=== PATIENT | male | born 1965 | race African-American/Black ===

== ENCOUNTER 2016-12-26 13:38 | Emergency (ER) | payer OTHER ==
[2016-12-26 14:15] VITALS: RESP 18
--- NOTE | 2016-12-26 14:42 | ED ---
General Adult HPI - General Chief complaint: Extremity Injury, Lower Stated complaint: ankle injury Time Seen by Provider: 12/26/16 14:19 Source: patient, RN notes reviewed Mode of arrival: ambulatory Limitations: no limitations - History of Present Illness Initial comments: This is a 51-year-old male presents with right ankle pain. Patient states he was walking and rolled his right ankle on Friday. Patient reports that the swelling is increasing and the pain has increased since Friday. Patient denies any numbness/tingling or weakness to the right lower extremity. Patient has been ambulating. Patient is not on any anticoagulants. Patient states he has a history of asthma and is requesting a refill of his albuterol inhaler today. Patient denies any recent fever, chills, shortness breath, chest pain, abdominal pain, nausea/vomiting/diarrhea, back pain, numbness, tingling, hematuria, headache, or visual changes, or any other complaints. - Related Data Previous Rx's Medication Instructions Recorded Albuterol Inhaler [Ventolin Hfa 1 - 2 puff INHALATION Q6HR #1 12/26/16 Inhaler] inhaler HYDROcodone/APAP 5-325MG [[place] 1 tab PO Q6HR #12 tab 12/26/16 5-325] Allergies Allergy/AdvReac Type Severity Reaction Status Date / Time No Known Allergies Allergy Verified 12/26/16 14:18 Review of Systems ROS Statement: Those systems with pertinent positive or pertinent negative responses have been documented in the HPI. ROS Other: All systems not noted in ROS Statement are negative. Past Medical History Past Medical History: Asthma History of Any Multi-Drug Resistant Organisms: None Reported Additional Past Surgical History / Comment(s): neck surgery. Past Psychological History: No Psychological Hx Reported Smoking Status: Never smoker Past Alcohol Use History: Occasional Past Drug Use History: Cocaine, Marijuana General Exam - General Exam Comments Initial Comments: General: The patient is awake and alert, in no distress, and does not appear acutely ill. Neck: The neck is supple, there is no tenderness or JVD. Cardiovascular: There is a regular rate and rhythm. No murmur, rub or gallop is appreciated. Respiratory: Lungs are clear to auscultation, respirations are non-labored, breath sounds are equal. No wheezes, stridor, rales, or rhonchi. Musculoskeletal: There is tenderness to palpation over the medial and lateral malleoli of the right ankle. There is 1+ nonpitting edema to the right lower extremity extending from the mid calf into the right foot. Patient has tenderness to the distal right tib-fib. Patient has no tenderness to palpation of the right foot. Limited range of motion of the right ankle joint due to pain and swelling. Patient is able to flex and extend at the right ankle joint slightly. Strength 5/5 and Sensation intact. Dorsalis pedis pulses 2+ bilaterally. Capillary refill is normal at less than 2 seconds. Neurological: A&O x 3. CN II-XII intact, There are no obvious motor or sensory deficits. Coordination appears grossly intact. Speech is normal. Skin: Skin is warm and dry and no rashes or lesions are noted. Psychiatric: Normal mood and affect. Limitations: no limitations Course Vital Signs 12/26/16 14:00 Temperature 98.5 F Pulse Rate 93 Respiratory 18 Rate Blood Pressure 140/80 O2 Sat by Pulse 99 Oximetry Medical Decision Making - Medical Decision Making This is a 50-year-old male with right ankle pain since Friday. On physical exam There is tenderness to palpation over the medial and lateral malleoli of the right ankle. There is 1+ nonpitting edema to the right lower extremity extending from the mid calf into the right foot. Patient has tenderness to the distal right tib-fib. Patient has no tenderness to palpation of the right foot. Limited range of motion of the right ankle joint due to pain and swelling. Patient is able to flex and extend at the right ankle joint slightly. Strength 5/5 and Sensation intact. Dorsalis pedis pulses 2+ bilaterally. Capillary refill is normal at less than 2 seconds. Patient is requesting a refill of his albuterol inhaler for asthma. She is currently not having any shortness of breath and lungs are clear to auscultation bilaterally. Patient will be given a prescription for albuterol inhaler today. An x-ray of the right ankle is done and reviewed showing: #1 week fracture with displacement distal fibula. #2 distortion of the ankle mortise with widening of the medial compartment correlate clinically. Reported by Dr. Grace. I did attempt to provide some reduction and patient was splinted. Patient is neurovascularly intact. A short leg posterior OCL splint to the right lower extremity was placed. Neurovascular was rechecked and is intact. Patient was instructed to stay non- weightbearing to the right lower extremity. Patient was instructed to rest, ice , elevate and keep splint on until follow-up with orthopedics. Patient will be given crutches. Discussed with patient to follow-up with orthopedics in the next 1-2 days. Discussed the patient should follow-up with his PCP or to please return to the [facility] symptoms worsen or for any other concerns. I discussed this case with attending physician Dr. Dillon who agrees with the plan as stated above. Disposition Clinical Impression: Closed fibular fracture Disposition: HOME SELF-CARE Condition: Good Instructions: Ankle Fracture (ED) Additional Instructions: Please rest, ice, elevate, and use splint for support. Please stay nonweightbearing to the right lower extremity and use crutches. Please use over -the-counter Motrin and/or Tylenol for pain. Please use [place] as needed for breakthrough pain. Please follow up with orthopedics tomorrow or as soon as possible. Please return to the [facility] for any worsening symptoms or for any further concerns. Prescriptions: Albuterol Inhaler [Ventolin Hfa Inhaler] 1 - 2 puff INHALATION Q6HR #1 inhaler HYDROcodone/APAP 5-325MG [[place] 5-325] 1 tab PO Q6HR #12 tab Referrals: Lucie Yap MD [Primary Care Provider] - 1-2 days Time of Disposition: 15:24
--- NOTE | 2016-12-26 15:10 | XR ---
EXAMINATION TYPE: XR ankle complete RT DATE OF EXAM: 12/26/2016 2:58 PM COMPARISON: NONE HISTORY: Pain Three views of the ankle demonstrate oblique fracture through the distal fibula. There is distortion and asymmetry the ankle mortise. Widening of the medial compartment of the ankle mortise correlate f or subluxation of the tibia. IMPRESSION: 1. Oblique fracture with displacement distal fibula. 2. Distortion of the ankle mortise with widening of the medial compartment correlate clinically.
--- NOTE | 2016-12-26 15:46 | ED ---
Disposition Clinical Impression: Closed fibular fracture Disposition: HOME SELF-CARE Condition: Good Instructions: Ankle Fracture (ED) Additional Instructions: Please rest, ice, elevate, and use splint for support. Please stay nonweightbearing to the right lower extremity and use crutches. Please use over -the-counter Motrin and/or Tylenol for pain. Please use [place] as needed for breakthrough pain. Please follow up with orthopedics tomorrow or as soon as possible. Please return to the [facility] for any worsening symptoms or for any further concerns. Prescriptions: Albuterol Inhaler [Ventolin Hfa Inhaler] 1 - 2 puff INHALATION Q6HR #1 inhaler HYDROcodone/APAP 5-325MG [[place] 5-325] 1 tab PO Q6HR #12 tab Referrals: Lucie Yap MD [Primary Care Provider] - 1-2 days Faraz La MD [Medical Doctor] - 1-2 days Time of Disposition: 15:46
[2016-12-26 15:52] VITALS: BP 136/76; PULSE 90; TEMP 98.2
== END 2016-12-26 15:51 | disposition home or self-care (01) ==
LOC: EC 13:38
DX: S82.831A Other fracture of upper and lower end of right fibula, initial encounter for closed fracture (principal); M25.871 Other specified joint disorders, right ankle and foot; X50.1XXA Overexertion from prolonged static or awkward postures, initial encounter; Y93.01 Activity, walking, marching and hiking; Z76.0 Encounter for issue of repeat prescription; J45.909 Unspecified asthma, uncomplicated
CPT/HCPCS: 29515; 99283

== ENCOUNTER 2017-01-08 11:20 | Day surgery (SDC) | payer OTHER ==
[2017-01-02 08:43] VITALS: BMI 28.1
[~2017-01-08 11:20] MED LIST: DEXAMETHASONE SOD PHOSPHATE 10 MG/ML 1 ML VIAL IV ONE; LACTATED RINGERS 1,000 ML IV SCH; LIDOCAINE 1% 20 ML VIAL (10MG/ML) FOR IV START INTRADERMA PRN; MIDAZOLAM 2 MG/2 ML VIAL IV PRN; ONDANSETRON 4 MG/2 ML VIAL IVP ONE; SCOPOLAMINE 1.5MG/72HR PATCH TRANSDERM ONE; ceFAZolin 2 GM in SODIUM CHLORIDE 0.9% 100 ML IVPB ONE; fentaNYL (PF) 50 MCG/ML 20 ML VIAL IVP PRN
[2017-01-08] MEDS ORDERED: HYDROmorphone 1 MG/ML 1 ML SYRINGE IVP PRN (12:33)
[2017-01-08] MEDS ORDERED: ONDANSETRON 4 MG/2 ML VIAL IVP PRN (12:33)
[2017-01-08] MEDS ORDERED: HYDROcodone/APAP 5-325MG 1 EACH TAB PO PRN (12:33)
[2017-01-08] MEDS ORDERED: fentaNYL (PF) 50 MCG/ML 2 ML AMP ONE (12:43)
[2017-01-08] MEDS ORDERED: LIDOCAINE 1% INJ 10MG/ML (20 ML MDV) ONE (12:43)
[2017-01-08] MEDS ORDERED: PROPOFOL 10 MG/ML 20 ML VIAL IV ONE (12:43)
[2017-01-08] MEDS ORDERED: HYDROmorphone (PF) 1 MG/ML ONE (12:43)
[2017-01-08] MEDS ORDERED: MIDAZOLAM 2 MG/2 ML VIAL ONE (12:43)
[2017-01-08] MEDS ORDERED: PHENYLEPHRINE-0.9% NACL SYG 1 MG/10 ML SYRINGE ONE (12:43)
[2017-01-08] MEDS ORDERED: SUCCINYLCHOLINE CHLORIDE 100 MG/5 ML SYR IV ONE (12:43)
[2017-01-08] MEDS ORDERED: ePHEDrine 50 MG/ML 1 ML AMP ONE (12:43)
[2017-01-08] MEDS ORDERED: ceFAZolin 1,000 MG in SODIUM CHLORIDE 0.9% 1,000 ML IRRIGATION ONE (13:17)
--- NOTE | 2017-01-08 14:05 | FL ---
Fluoroscopy INDICATION: Pain FINDINGS: Fluoroscopy time: 1 minute 15 seconds. Images obtained: 3. IMPRESSIONS: 1. Documentation of fluoroscopy.
--- NOTE | 2017-01-08 14:06 | XR ---
EXAMINATION TYPE: XR ankle limited RT DATE OF EXAM: 01/08/2017 2:01 PM COMPARISON: NONE HISTORY: Open reduction internal fixation right ankle TECHNIQUE: Fluoroscopy for procedure FINDINGS: 1 minute 15 seconds of fluoroscopy time was provided for procedure. 3 paper images are scan pamela. IMPRESSION: 1. Fluoroscopy for procedure
[2017-01-08] MEDS: HYDROmorphone 1 MG/ML 1 ML SYRINGE IVP PRN ×6 (14:20→15:31)
--- NOTE | 2017-01-08 14:42 | P.OP ---
Date of Procedure: 01/08/17 Preoperative Diagnosis: 1. Closed right bimalleolar equivalent ankle fracture 2. Current marijuana smoker Postoperative Diagnosis: Same Procedure(s) Performed: 1. Open reduction internal fixation of right lateral malleolus fracture 2. Right ankle syndesmotic screw 3. Manual application of joint stress for radiography by physician Anesthesia: EPI Surgeon: Faraz La Estimated Blood Loss (ml): 10 IV fluids (ml): 850 Pathology: none sent Condition: stable Disposition: PACU Indications for Procedure: The patient is a 51-year-old male who sustained a closed right ankle fracture almost 2 weeks ago. He was seen in emergency department were closed reduction and x-rays were taken. He was referred to my office. In my office he was found to have an unstable ankle fracture and I recommended surgery. We discussed the potential risks and Location of surgery including but not limited to risk of anesthesia, risk of superficial infection, risk of deep infection, risk of delayed wound healing, risk of wound necrosis, risk of need for plastic surgery coverage, risk of fracture nonunion, risk of fracture malunion, risk of synthetic hardware, risk of broken hardware, risk of displacement following surgery and the postoperative period, risk of chronic pain, risk of chronic swelling, risk of generalized to satisfaction with surgery, risk of inability to regain preinjury level of function, risk of difficulty ambulating, risk of need for further surgery, risk of need for syndesmotic screw removal, and possibly loss of life or limb. The patient understands these potential risks and Occasions and provided verbal and written consent to go forward with surgery. Description of Procedure: The patient was identified in preoperative holding and the correct right leg was marked with my initials. I reviewed the consent form with the patient and all his questions were answered. The patient was then brought back to the operating room. General anesthetic was administered after he was transferred onto the operating room table. All of his bony prominences were well-padded. I performed x-rays of the contralateral left x-rays including a mortise and a true lateral x-ray to use for R syndesmotic reduction should it be needed. The patient's right leg was then prepped and draped in standard sterile fashion. Prior to starting her timeout was performed identifying the correct patient, operative extremity, and procedure. Preoperative antibiotics were administered. The patient's right leg was then prepped and draped in the standard sterile fashion. The leg was then elevated, exsanguinated with an Esmarch bandage, and the tourniquet was inflated to 250 mmHg. An incision was marked out directly lateral over the distal fibula with a marking pen and skin incision was made a 15 blade scalpel. I dissected carefully down to the subcutaneous tissue with tenotomy scissors to avoid damaging any crossing branches of the superficial peroneal nerve. The fascia overlying the distal fibula was incised longitudinally in line with the skin incision. The fracture was immediately visible and exposed. Consolidating hematoma and early callus was sharply removed. I was able to gently open the fracture site and look into the lateral aspect of the ankle joint. There were no obvious osteochondral defects or loose intra-articular fragments. I then performed a closed reduction and clamped the fibula fracture with a point-to- point reduction clamp. C-arm fluoroscopy was brought in to verify reduction. On the mortise view the fibula appeared to be out to length but there was still widening of the medial clear space. I then proceeded to place an anterior to posterior lag screw across the fracture. A 2.7 drill bit was used to create a gliding hole on the anterior cortex of the proximal fragment and a 2.0 mm drill bit was used to create a threaded hole in the posterior cortex of the distal fragment. A fully threaded 2.7 mm screw was placed generating excellent compression across the fracture. The clamps were then removed and the fracture reduction held. I then held an 8 hole one third tubular plate over the distal fibula. A 3.5 screw was placed just proximal to the fracture bringing the plate nicely down to bone. 2 screws were then placed in the most distal holes of the plate in the distal fragment. I then proceeded to place 2 screws in the most proximal holes of the plate. I then performed a manual external rotation stress test. There was widening of the medial clear space and widening of the incisor. I interpreted this as instability of the syndesmosis requiring a screw. A stab incision was made over the medial aspect of the distal tibia centered on the lateral plane. A large pelvic reduction clamp was placed across the syndesmosis and gently tightened. C-arm was brought in to verify reduction of the syndesmosis and medial clear space. A fully threaded 3.5 mm syndesmotic screw was then placed. At this point all retractors were removed and final x-rays were taken. Hardware appeared to be in acceptable position, the fibula appeared out to length, and the talus was concentrically reduced within the ankle mortise with no widening of the medial clear space. A true lateral x-ray showed the talus centered under the plafond. Both wounds were copiously irrigated. The fascia over the distal fibula was closed with a running 0 Vicryl stitch. The deep subcu was reapproximated using 2-0 Vicryl. The skin was closed with interrupted 3-0 nylon horizontal mattress stitches. A single horizontal mattress stitch using 3-0 nylon was placed medially. After both incisions were closer verified that all instrument, sponge, and sharp counts were correct. The tourniquet was let down. A sterile dressing consisting of Betadine soaked Adaptic, 4 x 4, and web rolls applied. The drapes were then taken down and a padded bulky Su type splint was applied. The patient was then awoken from his anesthetic and transferred [facility]. He is brought to PACU in stable condition having tolerated the procedure well. Plan: The patient will discharge home as an outpatient. He is to remain strictly nonweightbearing on his right ankle. We'll plan on seeing him in the office in 2 weeks for clinical recheck with wound inspection and x-rays of the right ankle.
[2017-01-08 15:09] VITALS: TEMP 96.8
[2017-01-08] MEDS: LABETALOL 5 MG/ML VIAL MDV IVP ONE ×3 (15:20→16:00)
[2017-01-08] MEDS ORDERED: hydrALAZINE HCL 20 MG/ML 1 ML VIAL IVP ONE (15:45)
[2017-01-08] MEDS ORDERED: LABETALOL SYRINGE 5 MG/ML IVP ONE (16:10)
[2017-01-08 16:12] VITALS: RESP 18
[2017-01-08] MEDS ORDERED: oxyCODONE-APAP 5-325MG 1 EACH TAB PO ONE (16:19)
[2017-01-08 17:34] VITALS: BP 158/87; PULSE 80
== END 2017-01-08 17:34 | disposition home or self-care (01) ==
LOC: OR 11:20
PROVIDERS: ATTEND Orthopaedic Surgery
DX: S82.841A Displaced bimalleolar fracture of right lower leg, initial encounter for closed fracture (principal); X58.XXXA Exposure to other specified factors, initial encounter; J45.909 Unspecified asthma, uncomplicated; Z79.891 Long term (current) use of opiate analgesic; Z79.899 Other long term (current) drug therapy
CPT/HCPCS: 93005; 73600; 27814; C1713; J2250; J0360; J1100; J0690 ×2; J2405; J2001; J3010; J1170; J2370; J0330; J2704

== ENCOUNTER 2017-05-09 12:38 | Day surgery (SDC) | payer OTHER ==
[2017-05-07 12:33] VITALS: BMI 28.1
[~2017-05-09 12:38] MED LIST changes: -DEXAMETHASONE SOD PHOSPHATE 10 MG/ML 1 ML VIAL IV ONE; +HYDROmorphone 1 MG/ML 1 ML SYRINGE IVP PRN; -MIDAZOLAM 2 MG/2 ML VIAL IV PRN; -SCOPOLAMINE 1.5MG/72HR PATCH TRANSDERM ONE; -fentaNYL (PF) 50 MCG/ML 20 ML VIAL IVP PRN
[2017-05-09 13:34] VITALS: RESP 16
[2017-05-09] MEDS ORDERED: PROPOFOL 10 MG/ML 20 ML VIAL IV ONE (16:21)
[2017-05-09] MEDS ORDERED: MIDAZOLAM 2 MG/2 ML VIAL ONE (16:21)
[2017-05-09] MEDS ORDERED: LIDOCAINE 1% INJ 10MG/ML (20 ML MDV) ONE (16:21)
[2017-05-09] MEDS ORDERED: fentaNYL (PF) 50 MCG/ML 2 ML AMP ONE (16:21)
[2017-05-09] MEDS ORDERED: SUCCINYLCHOLINE CHLORIDE 100 MG/5 ML SYR IV ONE (16:21)
[2017-05-09] MEDS ORDERED: BUPIVACAINE (PF) 0.5% 30 ML VIAL SQ ONE (16:46)
[2017-05-09] MEDS ORDERED: LACTATED RINGERS 1,000 ML IV ONE (16:51)
--- NOTE | 2017-05-09 17:16 | P.OP ---
Date of Procedure: 05/09/17 Preoperative Diagnosis: Ankle fracture with retained syndesmotic screw Postoperative Diagnosis: Same Procedure(s) Performed: Hardware removal right ankle (right syndesmotic screw removal) Implants: Anesthesia: ZAA Surgeon: Faraz La Estimated Blood Loss (ml): 10 IV fluids (ml): 700 Pathology: none sent Condition: stable Disposition: PACU Indications for Procedure: The patient is a 52-year-old male but previously underwent open reduction internal fixation of a right ankle fracture. He had a syndesmotic screw placed. The patient went on to heal his fracture and has been doing well. I met with the patient several weeks ago and his main complaint was stiffness. I discussed removal of the syndesmotic screw. The patient after hearing the risks and benefits of removing the syndesmotic screw including risk of leaving the screw in place, risk of a broken screw, and risk of surgery with screw removal decided he wanted his syndesmotic screw removed. I discussed the potential risks and complications with the patient in the office including but not limited to risk of anesthesia, risk of superficial infection, risk of deep infection, risk of delayed wound healing, risk of wound necrosis, risk of broken hardware, risk of inability to remove the screw, risk of postoperative displacement, risk of postoperative instability, risk of progression of arthritis, risk of need for further surgery, risk of chronic pain, risk of chronic swelling, risk of difficulty ambulating preinjury level of function, and possibly loss of life or limb. The patient voiced his understanding of this and provided his verbal and written consent to go forward with surgery. Operative Findings: Description of Procedure: The patient was identified in preoperative holding and the correct leg was marked with my initials. I reviewed the consent form with the patient and his daughter and all their questions were answered. The patient was then brought back to the operating room. He was positioned on the operating room table. A general anesthetic was administered. A tourniquet was applied to the proximal aspect of the thigh but not inflated. C-arm was brought in to verify that the syndesmotic screw was not broken. The patient's right leg was then prepped and draped in the standard sterile fashion. Prior to starting surgery timeout was performed identifying the correct patient, operative extremity, and procedure. C-arm fluoroscopy was then brought in and I marked out the level of the syndesmotic screw. A 1 cm incision was made directly over the syndesmotic screw and dissection was carried down carefully to the level of the plate and screws. A small frag screwdriver was placed in the screw and carefully withdrawn after verifying with C-arm that the correct syndesmotic screw had been grasped with a screwdriver. After the screw was removed a mortise x-ray and manual external rotation stress x-ray were performed to verify that the screw had been removed and that the ankle remained stable. The wound was then copiously irrigated. The wound was closed with 3-0 nylon horizontal mattress stitches. 10 mL's of half percent Marcaine was injected around the incision. A sterile dressing consisting of Adaptic, 4 x 4, and web roll was applied. The patient was then placed in an Alberto wrap. The drapes were taken down and he was transferred from the operating room table to the [facility] and brought to PACU having to the procedure well. Plan: The patient can discharge home as an outpatient. He can weight-bear as tolerated in a cam boot. He is given a prescription for [place] 10/325 for pain control. He is also given prescriptions for Colace as a stool softener and aspirin 325 mg twice a day to help lower the risk of a blood clot. The patient will follow-up in the office in 2 weeks for stitch removal. He is to leave his dressing on for 2 days and then can remove his dressing and get his incision wet in the shower.
--- NOTE | 2017-05-09 17:16 | FL ---
Fluoroscopy INDICATION: Pain FINDINGS: Fluoroscopy time: 7 seconds. Images obtained: 1. IMPRESSIONS: 1. Documentation of fluoroscopy.
[2017-05-09 17:17] VITALS: TEMP 97.2
[2017-05-09 18:04] VITALS: BP 168/86; PULSE 73
== END 2017-05-09 18:25 | disposition home or self-care (01) ==
LOC: OR 12:38
PROVIDERS: ATTEND Orthopaedic Surgery
DX: T85.848A Pain due to other internal prosthetic devices, implants and grafts, initial encounter (principal); J45.909 Unspecified asthma, uncomplicated; Z79.899 Other long term (current) drug therapy
CPT/HCPCS: 20680; J2250; J0690; J2405; J2001; J3010; J0330; J2704

== ENCOUNTER 2018-06-15 13:52 | Emergency (ER) | payer OTHER ==
[2018-06-15 14:24] VITALS: RESP 18
[2018-06-15] MEDS ORDERED: PROPARACAINE 0.5% OPHTH DROPS 15 ML BTL LEFT EYE STA (14:42)
--- NOTE | 2018-06-15 14:44 | ED ---
Eye Problem HPI - General Chief complaint: Eye Problems Stated complaint: Eye Problem Time Seen by Provider: 06/15/18 14:37 Source: patient, RN notes reviewed Mode of arrival: ambulatory Limitations: no limitations - History of Present Illness Initial comments: This is a 53-year-old male who presents to the emergency department with chief complaint left eye problem. Patient states that today is the eighth day that he has had left eye irritation and redness. Denies any significant pain. He does state that the vision is blurry. States that he sometimes experiences foreign body sensation. Denies any suspicion for actual foreign body. Denies contact lens use. Denies fevers or chills, chest pain shortness of breath, abdominal pain, nausea or vomiting. - Related Data Home Medications Medication Instructions Recorded Confirmed Albuterol Inhaler [Ventolin Hfa 1 - 2 puff INHALATION Q6HR PRN 01/02/17 05/09/17 Inhaler] HYDROcodone/APAP 5-325MG [[place] 1 tab PO Q6HR PRN 01/02/17 05/09/17 5-325] Previous Rx's Medication Instructions Recorded Aspirin 325 mg PO BID #60 tab 05/09/17 Docusate [Colace] 100 mg PO BID #60 capsule 05/09/17 HYDROcodone/APAP 10-325MG [[place] 1 tab PO Q4HR PRN #30 tab 05/09/17 10-325] Allergies Allergy/AdvReac Type Severity Reaction Status Date / Time No Known Allergies Allergy Verified 06/15/18 14:24 Review of Systems ROS Statement: Those systems with pertinent positive or pertinent negative responses have been documented in the HPI. ROS Other: All systems not noted in ROS Statement are negative. Past Medical History Past Medical History: Asthma, Hypertension Additional Past Medical History / Comment(s): occ. Hypertension/ no meds History of Any Multi-Drug Resistant Organisms: None Reported Past Surgical History: Orthopedic Surgery Additional Past Surgical History / Comment(s): neck fusion; R ankle Past Anesthesia/Blood Transfusion Reactions: No Reported Reaction Past Psychological History: No Psychological Hx Reported Smoking Status: Former smoker Past Alcohol Use History: Occasional Past Drug Use History: Marijuana - Past Family History Mother Family Medical History: No Reported History General Exam - General Exam Comments Initial Comments: General: Awake and alert, well-developed; in no apparent distress. HEENT: Head atraumatic, normocephalic. Pupils are equal, round and reactive to light. Extraocular movements intact. Left conjunctiva is severely injected. On fluorescein staining, there is a small conjunctival abrasion at the lateral eye. No other abrasions or ulcers are noted. No foreign bodies noted within the eye or under superior or inferior eyelids. Intraocular pressure 15 in the left eye and 16 in the right eye. Oropharynx moist without erythema or exudate. Neck: Supple. Normal ROM. Cardiovascular: Regular rate and rhythm. No murmurs, rubs or gallops. Chest symmetrical. Respiratory: Lungs clear to auscultation bilaterally. No wheezes, rales or rhonchi. Normal respiratory effort with no use of accessory muscles. Musculoskeletal: Normal ROM, no tenderness bilateral upper and lower extremities. Ambulating normally. Skin: [place], warm and dry without rashes or lesions. Neurological: Alert and oriented x3. CN II-XII grossly intact. Speech is fluent and answers are appropriate. No focal neuro deficits. Psychiatric: Normal mood and affect. No overt signs of depression or anxiety noted. Limitations: no limitations Course Vital Signs 06/15/18 14:20 Temperature 98.2 F Pulse Rate 98 Respiratory 18 Rate Blood Pressure 154/91 O2 Sat by Pulse 100 Oximetry Medical Decision Making - Medical Decision Making This is a 53-year-old male who presents to the emergency department with chief complaint of irritated eye. Patient reports this is day 8 of his left eye being irritated and red. He reports blurred vision. Denies pain with eye movement or suspicion for foreign body. He does state, however that he does sometimes have foreign body sensation. On physical examination, left conjunctiva severely injected. Intraocular pressure is within normal limits. There is a small conjunctival abrasion noted on fluorescein staining. Patient will be started on antibiotic eyedrops and recommended to follow up with ophthalmology within 1-2 days. Patient's vital signs are stable and he is in no acute distress. He will be discharged home at this time. He is in agreement with plan and voices understanding. All questions answered. Disposition Clinical Impression: Conjunctival abrasion Disposition: HOME SELF-CARE Condition: Good Instructions: Conjunctivitis (ED), Corneal Abrasion (ED), Moxifloxacin (Into the eye) Additional Instructions: Follow-up with Dr. Guzman, unmanned equipment operator within 1-2 days. Please instill 1-2 drops into the affected eye every 2-4 hours for 2 days and then 1-2 drops every 6 hours for the next 5 days. Please follow up with primary care provider within 1-2 days. Return to emergency department if symptoms should worsen or any concerns arise. Is patient prescribed a controlled substance at d/c from ED?: No Referrals: Bhaskar Phillip MD [Primary Care Provider] - 1-2 days Cuauhtemoc Guzman MD [STAFF PHYSICIAN] - 1-2 days Time of Disposition: 15:24
[2018-06-15] MEDS ORDERED: CIPROFLOXACIN 0.3% OPHTH SOLN 5 ML BTL LEFT EYE STA (15:01)
[2018-06-15] MEDS ORDERED: MOXIFLOXACIN HCL 0.5% DROPS 3 ML BTL LEFT EYE ONE (15:15)
[2018-06-15 15:53] VITALS: BP 148/89; PULSE 70; TEMP 98
== END 2018-06-15 15:30 | disposition home or self-care (01) ==
LOC: EC 13:52
DX: S05.02XA Injury of conjunctiva and corneal abrasion without foreign body, left eye, initial encounter (principal); J45.909 Unspecified asthma, uncomplicated; Z87.891 Personal history of nicotine dependence; Z98.890 Other specified postprocedural states; X58.XXXA Exposure to other specified factors, initial encounter
CPT/HCPCS: 99282

== ENCOUNTER 2020-03-30 10:40 | Observation (INO) | payer OTHER ==
[2020-03-30] MEDS ORDERED: SODIUM CHLORIDE 0.9% 1,000 ML IV STA ×2 (10:50→11:20)
[2020-03-30] MEDS ORDERED: LORazepam 2 MG/ML INJ IV STA (10:50)
--- NOTE | 2020-03-30 10:54 | ED ---
General Adult HPI - General Chief complaint: Seizure Stated complaint: Seizure Time Seen by Provider: 03/30/20 10:43 Source: patient, EMS, RN notes reviewed Mode of arrival: EMS Limitations: no limitations - History of Present Illness Initial comments: Patient is a pleasant 55-year-old male presenting to the emergency Department with reported seizure. Patient had reported generalized tonic clonic seizure lasting 2 minutes. Following this patient reportedly was postictal by EMS. Patient states he feels fine at this time. Patient states he has had previous seizures however is unclear how many. Patient states his first seizure was around 6 or 7 months ago. Patient believes he is supposed be on medication however is not clear what it is and does not believe that he takes a. Patient is unclear on details if he has been previously to the hospital for seizures or head cT. patient was reportedly taking a large amount of alcohol yesterday. Jose rivera denies that his seizures are alcohol related. - Related Data Home Medications Medication Instructions Recorded Confirmed Albuterol Inhaler (Mhu) [Ventolin 1 - 2 puff INHALATION Q6HR PRN 01/02/17 05/09/17 Hfa Inhaler (Mhu)] HYDROcodone/APAP 5-325MG [Huron 1 tab PO Q6HR PRN 01/02/17 05/09/17 5-325] Previous Rx's Medication Instructions Recorded Aspirin 325 mg PO BID #60 tab 05/09/17 Docusate [Colace] 100 mg PO BID #60 capsule 05/09/17 HYDROcodone/APAP 10-325MG [Huron 1 tab PO Q4HR PRN #30 tab 05/09/17 10-325] Allergies Allergy/AdvReac Type Severity Reaction Status Date / Time No Known Allergies Allergy Verified 06/15/18 14:24 Review of Systems ROS Statement: Those systems with pertinent positive or pertinent negative responses have been documented in the HPI. ROS Other: All systems not noted in ROS Statement are negative. Constitutional: Denies: fever Eyes: Denies: eye pain ENT: Denies: ear pain Respiratory: Denies: cough Cardiovascular: Denies: chest pain Endocrine: Denies: fatigue Gastrointestinal: Denies: abdominal pain Genitourinary: Denies: dysuria Musculoskeletal: Denies: back pain Skin: Denies: rash Neurological: Reports: as per HPI. Denies: headache, weakness Past Medical History Past Medical History: Asthma, Hypertension Additional Past Medical History / Comment(s): occ. Hypertension/ no meds History of Any Multi-Drug Resistant Organisms: None Reported Past Surgical History: Orthopedic Surgery Additional Past Surgical History / Comment(s): neck fusion; R ankle Past Anesthesia/Blood Transfusion Reactions: No Reported Reaction Past Psychological History: No Psychological Hx Reported Smoking Status: Former smoker Past Alcohol Use History: Occasional Past Drug Use History: Marijuana - Past Family History Mother Family Medical History: No Reported History General Exam Limitations: no limitations General appearance: alert, in no apparent distress Head exam: Present: atraumatic, normocephalic Eye exam: Present: normal appearance, PERRL, EOMI ENT exam: Present: other (Right anterior tongue abrasion) Neck exam: Present: normal inspection. Absent: tenderness Respiratory exam: Present: normal lung sounds bilaterally Cardiovascular Exam: Present: regular rate, normal rhythm GI/Abdominal exam: Present: soft. Absent: tenderness Extremities exam: Present: normal inspection Neurological exam: Present: alert, oriented X3, CN II-XII intact. Absent: motor sensory deficit Expanded Neurological exam: Present: protecting the airway Patient oriented to: Present: person, place, time Cranial nerves: EOM's Intact: Normal Motor strength exam: RUE: 5, LUE: 5, RLE: 5, LLE: 5 Eye Response: (4) open spontaneously Motor Response: (6) obeys commands Verbal Response: (5) oriented Psychiatric exam: Present: normal affect, normal mood Skin exam: Present: normal color Course Vital Signs 03/30/20 10:40 Temperature 98.6 F Pulse Rate 102 H Respiratory 18 Rate Blood Pressure 135/87 O2 Sat by Pulse 98 Oximetry EKG Findings - EKG Comments: EKG Findings:: Normal sinus rhythm 95. ND 132. QRS 78. QT 346. QTc 434. Normal axis. Normal QRS. Early repolarization. Medical Decision Making - Medical Decision Making Patient reevaluated. Patient and family updated. Case discussed in detail with Dr. Mitchell, who will admit covering for hospital call with [facility]. - Lab Data Result diagrams: 03/30/20 10:44 03/30/20 10:44 Lab Results 03/30/20 03/30/20 03/30/20 Range/Units 10:44 10:44 10:44 WBC 10.1 (3.8-10.6) k/uL RBC 4.47 (4.30-5.90) m/uL Hgb 13.1 (13.0-17.5) gm/dL Hct 41.3 (39.0-53.0) % MCV 92.5 (80.0-100.0) fL MCH 29.4 (25.0-35.0) pg MCHC 31.7 (31.0-37.0) g/dL RDW 13.6 (11.5-15.5) % Plt Count 290 (150-450) k/uL Neutrophils % 61 % Lymphocytes % 30 % Monocytes % 5 % Eosinophils % 1 % Basophils % 1 % Neutrophils # 6.2 (1.3-7.7) k/uL Lymphocytes # 3.0 (1.0-4.8) k/uL Monocytes # 0.5 (0-1.0) k/uL Eosinophils # 0.1 (0-0.7) k/uL Basophils # 0.1 (0-0.2) k/uL Sodium 139 (137-145) mmol/L Potassium 4.9 (3.5-5.1) mmol/L Chloride 108 H (98-107) mmol/L Carbon Dioxide 16 L (22-30) mmol/L Anion Gap 15 mmol/L BUN 11 (9-20) mg/dL Creatinine 0.71 (0.66-1.25) mg/dL Est GFR (CKD-EPI)AfAm >90 (>60 ml/min/1.73 sqM) Est GFR (CKD-EPI)NonAf >90 (>60 ml/min/1.73 sqM) Glucose 91 (74-99) mg/dL Calcium 9.2 (8.4-10.2) mg/dL Magnesium 2.2 (1.6-2.3) mg/dL Total Bilirubin 0.4 (0.2-1.3) mg/dL AST 26 (17-59) U/L ALT 15 (4-49) U/L Alkaline Phosphatase 58 (38-126) U/L Total Protein 7.4 (6.3-8.2) g/dL Albumin 4.1 (3.5-5.0) g/dL Urine Color Light Yellow Urine Appearance Clear (Clear) Urine pH 7.0 (5.0-8.0) Ur Specific [place] 1.014 (1.001-1.035) Urine Protein 1+ H (Negative) Urine Glucose (UA) Negative (Negative) Urine Ketones Negative (Negative) Urine Blood Negative (Negative) Urine Nitrite Negative (Negative) Urine Bilirubin Negative (Negative) Urine Urobilinogen <2.0 (<2.0) mg/dL Ur Leukocyte Esterase Negative (Negative) Urine RBC <1 (0-5) /hpf Urine WBC <1 (0-5) /hpf Hyaline Casts 4 H (0-2) /lpf Urine Mucus Rare H (None) /hpf Urine Opiates Screen Not Detected (NotDetected) Ur Oxycodone Screen Not Detected (NotDetected) Urine Methadone Screen Not Detected (NotDetected) Ur Propoxyphene Screen Not Detected (NotDetected) Ur Barbiturates Screen Not Detected (NotDetected) U Tricyclic Antidepress Not Detected (NotDetected) Ur Phencyclidine Scrn Not Detected (NotDetected) Ur Amphetamines Screen Not Detected (NotDetected) U Methamphetamines Scrn Not Detected (NotDetected) U Benzodiazepines Scrn Not Detected (NotDetected) Urine Cocaine Screen Not Detected (NotDetected) U Marijuana (THC) Screen Detected H (NotDetected) Serum Alcohol <10 mg/dL Disposition Clinical Impression: Generalized seizure Disposition: ADMITTED IP TO THIS HOSP Is patient prescribed a controlled substance at d/c from ED?: No Referrals: None,Stated [Primary Care Provider] - 1-2 days Decision Time: 11:50
[2020-03-30 11:07] LABS: Basophils # (A) 0.1 k/uL (0-0.2); Basophils % (A) 1 %; Eosinophils # (A) 0.1 k/uL (0-0.7); Eosinophils % (A) 1 %; HCT 41.3 % (39.0-53.0); HGB 13.1 gm/dL (13.0-17.5); Lymphocytes % (A) 30 %; MCH 29.4 pg (25.0-35.0); MCHC 31.7 g/dL (31.0-37.0); MCV 92.5 fL (80.0-100.0); Mean Platelet Volume 7.9; Monocytes # (A) 0.5 k/uL (0-1.0); Monocytes % (A) 5 %; Neutrophils # (A) 6.2 k/uL (1.3-7.7); Neutrophils % (A) 61 %; Platelet Count 290 k/uL (150-450); RBC 4.47 m/uL (4.30-5.90); RDW 13.6 % (11.5-15.5); WBC 10.1 k/uL (3.8-10.6)
[2020-03-30 11:16] LABS: Appearance,Urine Clear (Clear); Bilirubin,Urine Negative (Negative); Blood,Urine Negative (Negative); Color,Urine Light Yellow; Glucose,Urine (UA) Negative (Negative); Hyaline Casts,Urine 4 /lpf (0-2); Ketones,Urine Negative (Negative); Leukocyte Esterase,Urine Negative (Negative); Mucus,Urine Rare /hpf; Nitrite,Urine Negative (Negative); Protein,Urine 1+ (Negative); RBC,Urine <1 /hpf (0-5); Specific Gravity,Urine 1.014 (1.001-1.035); Urobilinogen,Urine <2.0 mg/dL (<2.0); WBC,Urine <1 /hpf (0-5)
[2020-03-30 11:17] LABS: ALT 15 U/L (4-49); AST 26 U/L (17-59); African American GFR (CKD) >90 (>60 ml/min/1.73 sqM); Albumin 4.1 g/dL (3.5-5.0); Alcohol <10 mg/dL; Alkaline Phosphatase 58 U/L (38-126); Anion Gap 15 mmol/L; Blood Urea Nitrogen 11 mg/dL (9-20); Calcium 9.2 mg/dL (8.4-10.2); Carbon Dioxide 16 mmol/L (22-30); Chloride 108 mmol/L (98-107); Glucose 91 mg/dL (74-99); Magnesium 2.2 mg/dL (1.6-2.3); Non-African American GFR(CKD) >90 (>60 ml/min/1.73 sqM); Potassium 4.9 mmol/L (3.5-5.1); Sodium 139 mmol/L (137-145); Total Bilirubin 0.4 mg/dL (0.2-1.3); Total Protein 7.4 g/dL (6.3-8.2)
[2020-03-30 11:20] LABS: Amphetamine Screen,Urine Not Detected (NotDetected); Barbiturate Screen,Urine Not Detected (NotDetected); Benzodiazepines Screen,Urine Not Detected (NotDetected); Cocaine Screen,Urine Not Detected (NotDetected); Methadone Screen, Urine Not Detected (NotDetected); Opiate Screen,Urine Not Detected (NotDetected); Oxycodone Screen, Urine Not Detected (NotDetected); Phencyclidine Screen,Urine Not Detected (NotDetected); Tricyclic Antidepressant,Urine Not Detected (NotDetected); Urn Cannabinoid Scrn Detected (NotDetected)
--- NOTE | 2020-03-30 11:25 | CT ---
EXAMINATION TYPE: CT brain wo con DATE OF EXAM: 03/30/2020 COMPARISON: None HISTORY: seizure CT DLP: 1099.[address] of the brain was performed. The ventricles, basal cisterns and sulci overlying the cerebral convexities demonstrate a normal appe arance. There is no evidence for intracranial hemorrhage or sulcal effacement. No mass effects are seen. Osseous calvarium is intact. If symptoms persist consider MRI as clinically warranted. IMPRESSION: 1. No acute intracranial process is seen at this time.
[2020-03-30] MEDS ORDERED: NALOXONE 0.4 MG/ML 1 ML VIAL IV PRN (11:51)
[2020-03-30] MEDS ORDERED: SODIUM CHLORIDE 0.9% 1,000 ML IV SCH (12:00)
[2020-03-30 12:02] LABS: Glucose,Whole Blood 83 mg/dL (75-99)
[2020-03-30] MEDS ORDERED: ONDANSETRON 4 MG/2 ML VIAL IVP PRN (14:43)
[2020-03-30] MEDS ORDERED: ACETAMINOPHEN TAB 325 MG TAB PO PRN (14:43)
--- NOTE | 2020-03-30 14:49 | P.HPIM ---
History of Present Illness H&P Date: 03/30/20 Chief Complaint: Seizure episode This is a 55-year-old male with past medical history of seizure disorder who presented to the emergency room with a generalized tonic-clonic seizure. Patient does not recall exactly what happened. Per ER report seizure lasted 2 minutes. Patient was post ictal by EMS. Patient was seen by me on the floor. He is awake and alert. Patient said that he usually takes seizure medication that he does not recall the name. He reported that started with the letter L and the dose is 1000 mg twice daily. Patient said that he takes his medication regularly. Patient's report that he drinks alcohol 2 or 3 times a day and when he does he drinks 5 beers. His last episode of drinking was the day before yesterday. He denies any headache or vision change. No other complaints or concerns. Review of Systems Review of system: 14 points review of systems were obtained and were negative except to what were mentioned in the HPI. Past Medical History Past Medical History: Asthma, Hypertension Additional Past Medical History / Comment(s): occ. Hypertension/ no meds History of Any Multi-Drug Resistant Organisms: None Reported Past Surgical History: Orthopedic Surgery Additional Past Surgical History / Comment(s): neck fusion; R ankle Past Anesthesia/Blood Transfusion Reactions: No Reported Reaction Past Psychological History: No Psychological Hx Reported Smoking Status: Former smoker Past Alcohol Use History: Occasional Past Drug Use History: Marijuana - Past Family History Mother Family Medical History: No Reported History Medications and Allergies Home Medications Medication Instructions Recorded Confirmed Type No Known Home Medications 03/30/20 03/30/20 History Allergies Allergy/AdvReac Type Severity Reaction Status Date / Time No Known Allergies Allergy Verified 03/30/20 12:50 Physical Exam Vitals: Vital Signs Temp Pulse Pulse Resp BP BP Pulse Ox 03/30/20 14:30 98.8 F 97 18 158/97 100 03/30/20 12:53 85 18 158/103 98 03/30/20 10:40 98.6 F 102 H 18 135/87 98 Intake and Output 03/29/20 03/30/20 03/30/20 22:59 06:59 14:59 Other: Weight 79.379 kg General: The patient is awake and alert, in no distress Eye: there is normal conjunctiva bilaterally. Neck: The neck is supple, there is no JVD. Cardiovascular: Normal S1-S2, no S3-S4, no murmurs. Respiratory: Lungs clear to auscultation bilaterally Gastrointestinal: Abdomen is soft, nontender Musculoskeletal: There is no pedal edema. Neurological:. Speech is normal. Skin: Skin is warm and dry Results CBC & Chem 7: 03/30/20 10:44 03/30/20 10:44 Labs: Abnormal Lab Results - Last 24 Hours (Table) 03/30/20 03/30/20 Range/Units 10:44 10:44 Chloride 108 H (98-107) mmol/L Carbon Dioxide 16 L (22-30) mmol/L Urine Protein 1+ H (Negative) Hyaline Casts 4 H (0-2) /lpf Urine Mucus Rare H (None) /hpf U Marijuana (THC) Screen Detected H (NotDetected) Assessment and Plan Assessment: 1. Seizure episode, may be attributed to alcohol abuse. Patient reports taking Keppra thousand milligrams twice daily at home. We will check Keppra level. For now we'll continue with IV Keppra thousand milligrams twice daily. Computed tomography scan of the head in the ER with no acute findings. Neurology consulted for further evaluation. EEG ordered. Continue seizure precaution. Urinalysis unremarkable. 2. DVT prophylaxis with subcu heparin
--- NOTE | 2020-03-30 16:47 | EEG ---
ELECTROENCEPHALOGRAM REPORT DATE OF SERVICE: 03/30/2020 PREAMBLE: A 55-year-old male admitted with seizure. Patient has recently been diagnosed with seizure disorder. EEG FINDINGS: This is a 21 channel routine EEG recording in a patient utilizing 10-20 international system with bipolar and referential montages. The background consists of well developed, well regulated, moderate voltage activity in 9-10 Hz alpha. Background is posterior dominant and reactive to eye opening and closing. Photic driving response was seen with some flash frequencies. The patient was drowsy during most of the study with appearance of bilaterally symmetric theta frequency rhythm. Deeper stages of sleep were not seen. No focal or generalized epileptiform activity was seen. EKG rhythm lead revealed no arrhythmia. IMPRESSION: This is a normal awake and drowsy EEG. No focal, lateralized, or epileptiform activity was seen. MMODL / IJN: [id number] /
[2020-03-30] MEDS ORDERED: THIAMINE 100 MG/ML 2 ML VIAL IM STA (17:17)
[2020-03-30] MEDS ORDERED: LORazepam 2 MG/ML INJ IV PRN ×3 (17:17)
[2020-03-30] MEDS: THIAMINE 100 MG TAB PO SCH (17:31)
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
[2020-03-30] MEDS: HEPARIN SODIUM,PORCINE 5,000 UNIT/ML 1 ML VIAL SQ SCH (20:00)
[2020-03-30] MEDS ORDERED: levETIRAcetam IV 1,000 MG in SALINE 1 100ML.BAG IVPB SCH (21:00)
[2020-03-30 22:21] VITALS: RESP 16
[2020-03-31 05:13] VITALS: BP 147/82; PULSE 64; TEMP 97.8
[2020-03-31] MEDS: HEPARIN SODIUM,PORCINE 5,000 UNIT/ML 1 ML VIAL SQ SCH (07:57)
[2020-03-31] MEDS: THIAMINE 100 MG TAB PO SCH (07:57)
--- NOTE | 2020-03-31 09:42 | P.DS ---
Providers Date of admission: 03/30/20 11:51 Expected date of discharge: 03/31/20 Attending physician: Jesica Casanova Consults: 03/30/20 11:51 Consult Physician Urgent Consulting Provider: Kaylynn Mcleod Consult Reason/Comments: seizures Do you want consulting provider notified?: Yes Primary care physician: Stated None Hospital Course: This is a 55-year-old male with past medical history of seizure disorder who presented to the emergency room with a generalized tonic-clonic seizure. Patient does not recall exactly what happened. Patient said that he takes his medication regularly. Patient's report that he drinks alcohol 2 or 3 times a day and when he does he drinks 5 beers. patient was evaluated in the ER and placed on observation for further management of his medical problems noted below. 1. Seizure episode, may be attributed to alcohol abuse. Patient reports taking Keppra thousand milligrams twice daily at home. Keppra level pending. Computed tomography scan of the head in the ER with no acute findings. Neurology consulted for further evaluation. EEG done and normal. Keppra dose increased to 1500 mg twice daily. Patient was cleared by neurology for discharge. He was advised of the state law not to drive or operate vehicles for the next 6 months. 2. Alcohol abuse, with no evidence of withdrawal. Patient was counseled extensively to stop. Patient will be discharged home in a stable condition. For further details about this hospitalization please refer to the electronic chart. Patient Condition at Discharge: Fair Plan - Discharge Summary New Discharge Prescriptions: New levETIRAcetam [Keppra] 1,500 mg PO Q12HR #180 tablet Discharge Medication List levETIRAcetam [Keppra] 1,500 mg PO Q12HR #180 tablet 03/31/20 [Rx] Follow up Appointment(s)/Referral(s): None,Stated [Primary Care Provider] - 1-2 days Discharge Disposition: HOME SELF-CARE
== END 2020-03-31 12:00 | disposition home or self-care (01) ==
LOC: EC 10:40 → 5NMEDONC 11:51
PROVIDERS: ADMIT Internal Medicine; ATTEND Internal Medicine
DX: G40.409 Other generalized epilepsy and epileptic syndromes, not intractable, without status epilepticus (principal); F10.10 Alcohol abuse, uncomplicated; Z98.1 Arthrodesis status; Z98.890 Other specified postprocedural states; Z79.82 Long term (current) use of aspirin; Z79.899 Other long term (current) drug therapy
CPT/HCPCS: 96372 ×2; 96361; 96374; 99285; 36415; 95816; 93005; 80053; 80177; 83735; 85025; 81001; 80306; 87635; 70450; G0378 ×2; G0480; J2060; J1644 ×2; 80320

== ENCOUNTER 2020-07-01 05:44 | Emergency (ER) | payer OTHER ==
[2020-07-01 05:47] LABS: Glucose,Whole Blood 129 mg/dL (75-99)
[2020-07-01 05:52] VITALS: PULSE 87; TEMP 98.1
[2020-07-01] MEDS ORDERED: SODIUM CHLORIDE 0.9% 500 ML 500 ML IV STA (06:01)
[2020-07-01 06:08] LABS: Basophils # (A) 0.1 k/uL (0-0.2); Basophils % (A) 1 %; Eosinophils # (A) 0.2 k/uL (0-0.7); Eosinophils % (A) 2 %; HCT 49.6 % (39.0-53.0); Lymphocytes # (A) 4.6 k/uL (1.0-4.8); Lymphocytes % (A) 34 %; MCH 29.9 pg (25.0-35.0); MCHC 32.2 g/dL (31.0-37.0); MCV 92.9 fL (80.0-100.0); Mean Platelet Volume 7.8; Monocytes # (A) 0.7 k/uL (0-1.0); Monocytes % (A) 5 %; Neutrophils # (A) 7.5 k/uL (1.3-7.7); Neutrophils % (A) 56 %; Platelet Count 304 k/uL (150-450); RBC 5.34 m/uL (4.30-5.90); RDW 13.5 % (11.5-15.5); WBC 13.4 k/uL (3.8-10.6)
[2020-07-01 06:18] LABS: ALT 25 U/L (4-49); AST 36 U/L (17-59); African American GFR (CKD) >90 (>60 ml/min/1.73 sqM); Albumin 4.6 g/dL (3.5-5.0); Alkaline Phosphatase 77 U/L (38-126); Anion Gap 16 mmol/L; Blood Urea Nitrogen 13 mg/dL (9-20); Calcium 9.1 mg/dL (8.4-10.2); Carbon Dioxide 18 mmol/L (22-30); Chloride 107 mmol/L (98-107); Glucose 121 mg/dL (74-99); Non-African American GFR(CKD) >90 (>60 ml/min/1.73 sqM); Potassium 4.9 mmol/L (3.5-5.1); Sodium 141 mmol/L (137-145); Total Bilirubin 0.6 mg/dL (0.2-1.3); Total Protein 8.1 g/dL (6.3-8.2)
[2020-07-01] MEDS ORDERED: levETIRAcetam IV 1,000 MG in SALINE 1 100ML.BAG IVPB STA (06:20)
--- NOTE | 2020-07-01 06:23 | ED ---
Seizure HPI - General Chief Complaint: Seizure Stated Complaint: Seizure Time Seen by Provider: 07/01/20 05:55 Source: patient, EMS, RN notes reviewed, old records reviewed Mode of arrival: EMS Limitations: no limitations - History of Present Illness Initial Comments: This a 55-year-old male presents emergency Department via EMS chief complaint of seizure. Patient has known history of seizures and states he reportedly had one per EMS and family. Patient was found by daughter shaking. Patient does admit that he supposed be taking Keppra. Has not taken in several weeks. Patient currently has no complaints denies headache, dizziness, focal weakness, chest pain, shortness with, nausea vomiting diarrhea constipation no fevers or chills. Patient states is small tongue injury noted. Patient is waiting to see a neurologist outpatient has seen an health insurance adjuster inpatient. - Related Data Previous Rx's Medication Instructions Recorded levETIRAcetam [Keppra] 1,500 mg PO Q12HR #180 tablet 03/31/20 Allergies Allergy/AdvReac Type Severity Reaction Status Date / Time No Known Allergies Allergy Verified 03/30/20 12:50 Review of Systems ROS Statement: Those systems with pertinent positive or pertinent negative responses have been documented in the HPI. ROS Other: All systems not noted in ROS Statement are negative. Past Medical History Past Medical History: Asthma, Hypertension, Seizure Disorder Additional Past Medical History / Comment(s): occ. Hypertension/ no meds, seizure 08/2019 takes Keppra at home History of Any Multi-Drug Resistant Organisms: None Reported Past Surgical History: Orthopedic Surgery Additional Past Surgical History / Comment(s): neck fusion; R ankle Past Anesthesia/Blood Transfusion Reactions: No Reported Reaction Past Psychological History: No Psychological Hx Reported Smoking Status: Former smoker Past Alcohol Use History: Occasional Past Drug Use History: Marijuana - Past Family History Mother Family Medical History: No Reported History General Exam Limitations: no limitations General appearance: alert, in no apparent distress Head exam: Present: atraumatic, normocephalic, normal inspection Eye exam: Present: normal appearance, PERRL, EOMI. Absent: scleral icterus, conjunctival injection, periorbital swelling ENT exam: Present: mucous membranes moist, TM's normal bilaterally, normal exter nal ear exam. Absent: normal oropharynx (Small tongue laceration the left lateral portion) Neck exam: Present: normal inspection, full ROM. Absent: tenderness, meningismus, lymphadenopathy Respiratory exam: Present: normal lung sounds bilaterally. Absent: respiratory distress, wheezes, rales, rhonchi, stridor Cardiovascular Exam: Present: regular rate, normal rhythm, normal heart sounds. Absent: systolic murmur, diastolic murmur, rubs, gallop, clicks Neurological exam: Present: alert, oriented X3, CN II-XII intact, reflexes normal. Absent: motor sensory deficit Skin exam: Present: warm, dry, intact, normal color. Absent: rash Course Vital Signs 07/01/20 05:45 Temperature 98.1 F Pulse Rate 87 Respiratory 16 Rate Blood Pressure 159/99 O2 Sat by Pulse 96 Oximetry Medical Decision Making - Medical Decision Making 55-year-old male presented to [facility] from for possible seizure. Patient has a known history he does admit that he's been medication noncompliant. Patient was given Kera labs unremarkable patient will be discharged and advised to follow-up with PCP and neurologist. Patient agrees this plan. - Lab Data Result diagrams: 07/01/20 03:50 07/01/20 03:50 Lab Results 07/01/20 07/01/20 07/01/20 Range/Units 03:50 03:50 05:46 WBC 13.4 H (3.8-10.6) k/uL RBC 5.34 (4.30-5.90) m/uL Hgb 16.0 (13.0-17.5) gm/dL Hct 49.6 (39.0-53.0) % MCV 92.9 (80.0-100.0) fL MCH 29.9 (25.0-35.0) pg MCHC 32.2 (31.0-37.0) g/dL RDW 13.5 (11.5-15.5) % Plt Count 304 (150-450) k/uL Neutrophils % 56 % Lymphocytes % 34 % Monocytes % 5 % Eosinophils % 2 % Basophils % 1 % Neutrophils # 7.5 (1.3-7.7) k/uL Lymphocytes # 4.6 (1.0-4.8) k/uL Monocytes # 0.7 (0-1.0) k/uL Eosinophils # 0.2 (0-0.7) k/uL Basophils # 0.1 (0-0.2) k/uL Sodium 141 (137-145) mmol/L Potassium 4.9 (3.5-5.1) mmol/L Chloride 107 (98-107) mmol/L Carbon Dioxide 18 L (22-30) mmol/L Anion Gap 16 mmol/L BUN 13 (9-20) mg/dL Creatinine 0.79 (0.66-1.25) mg/dL Est GFR (CKD-EPI)AfAm >90 (>60 ml/min/1.73 sqM) Est GFR (CKD-EPI)NonAf >90 (>60 ml/min/1.73 sqM) Glucose 121 H (74-99) mg/dL POC Glucose (mg/dL) 129 H (75-99) mg/dL POC Glu Account Collector ID Sayra Shelley Calcium 9.1 (8.4-10.2) mg/dL Total Bilirubin 0.6 (0.2-1.3) mg/dL AST 36 (17-59) U/L ALT 25 (4-49) U/L Alkaline Phosphatase 77 (38-126) U/L Total Protein 8.1 (6.3-8.2) g/dL Albumin 4.6 (3.5-5.0) g/dL - EKG Data -: EKG Interpreted by Me EKG Comments: EKG performed at 5 fall 46 normal sinus rhythm rate of 86 MT 1:30 QRS 90 QT stat us QTC 374/447 Disposition Clinical Impression: Generalized seizure Disposition: HOME SELF-CARE Condition: Stable Instructions (If sedation given, give patient instructions): Recurrent Seizures in Adults (ED) Additional Instructions: Please take your Keppra as directed.Please return to the Emergency Department if symptoms worsen or any other concerns. Is patient prescribed a controlled substance at d/c from ED?: No Referrals: Lucie Yap MD [REFERRING] - 1-2 days Evert Umaña DO [STAFF PHYSICIAN] - 1-2 days Keely Mai MD [REFERRING] - 1-2 days Time of Disposition: 07:19
[2020-07-01 07:44] VITALS: BP 138/87; RESP 18
== END 2020-07-01 07:37 | disposition home or self-care (01) ==
LOC: EC 05:44
DX: G40.909 Epilepsy, unspecified, not intractable, without status epilepticus (principal); S01.512A Laceration without foreign body of oral cavity, initial encounter; Z91.14 Patient's other noncompliance with medication regimen; Z87.891 Personal history of nicotine dependence; Z98.1 Arthrodesis status
CPT/HCPCS: 36415; 80053; 80177; 85025; 99284; 96374; J1953

== ENCOUNTER 2020-07-27 12:09 | Emergency (ER) | payer OTHER ==
[2020-07-27] MEDS ORDERED: SODIUM CHLORIDE 0.9% 1,000 ML IV STA (12:14)
[2020-07-27 12:20] VITALS: RESP 18
--- NOTE | 2020-07-27 12:28 | ED ---
Seizure HPI - General Source: patient, EMS Mode of arrival: EMS Limitations: no limitations <Baldemar Baez - Last Filed: 07/27/20 20:16> <Candie Ruiz - Last Filed: 07/28/20 16:23> - General Chief Complaint: Seizure Stated Complaint: Seizures Time Seen by Provider: 07/27/20 12:12 - History of Present Illness Initial Comments: Patient is a 55-year-old male with history of seizure disorder presents emergency Department with chief complaint of a seizure. Per EMS, patient had a seizure yesterday and today. He was at a friend's house and they decided to call the ambulance after the patient supposedly had a tonic-clonic seizure of unknown length of time. This was followed by a postictal state. Patient states he does not have a primary care physician nor does he see a neurologist. Patient does report smoking marijuana from time to time but did not have any today. Denies any one-sided weakness or paresthesias at this time. States he feels little tired. (Baldemar Baez) - Related Data Allergies Allergy/AdvReac Type Severity Reaction Status Date / Time No Known Allergies Allergy Verified 07/27/20 12:21 Review of Systems ROS Other: All systems not noted in ROS Statement are negative. <Baldemar Baez - Last Filed: 07/27/20 20:16> ROS Other: All systems not noted in ROS Statement are negative. <Candie Ruiz - Last Filed: 07/28/20 16:23> ROS Statement: Those systems with pertinent positive or pertinent negative responses have been documented in the HPI. Past Medical History Past Medical History: Asthma, Seizure Disorder History of Any Multi-Drug Resistant Organisms: None Reported Past Surgical History: No Surgical Hx Reported Past Psychological History: No Psychological Hx Reported Smoking Status: Current some day smoker Past Alcohol Use History: Occasional Past Drug Use History: Marijuana <Baldemar Baez - Last Filed: 07/27/20 20:16> General Exam Limitations: no limitations General appearance: alert, in no apparent distress Head exam: Present: atraumatic, normocephalic, normal inspection Eye exam: Present: normal appearance, PERRL, EOMI. Absent: scleral icterus, conjunctival injection, nystagmus Pupils: Present: normal accommodation ENT exam: Present: normal exam, normal oropharynx, mucous membranes moist, TM's normal bilaterally, normal external ear exam Neck exam: Present: normal inspection, full ROM. Absent: tenderness Respiratory exam: Present: normal lung sounds bilaterally. Absent: respiratory distress, wheezes, rales Cardiovascular Exam: Present: regular rate, normal rhythm, systolic murmur Extremities exam: Present: normal inspection, full ROM, normal capillary refill, other (+2 ulnar and radial pulses bilaterally. +2 dorsalis pedis and posterior tibials bilaterally.). Absent: tenderness, pedal edema, joint swelling, calf tenderness Back exam: Present: normal inspection, full ROM. Absent: tenderness Neurological exam: Present: alert, oriented X3, normal gait Expanded Patient oriented to: Present: person, place, time Speech: Present: fluid speech Cranial nerves: EOM's Intact: Normal, Gag Reflex: Normal, Tongue Deviation: Normal, Facial Sensation: Normal Cerebellar function: Heel to Lewis: Normal Upper motor neuron: Pronator Drift: Normal Sensory exam: Upper Extremity Light Touch: Normal, Upper Extremity Pin Prick: Normal, Lower Extremity Light Touch: Normal, Lower Extremity Pin Prick: Normal Motor strength exam: RUE: 5, LUE: 5, RLE: 5, LLE: 5 DTR: Bicep (R): 4+, Bicep (L): 4+, Tricep (R): 4+, Tricep (L): 4+, Patellar (R): 4+, Patellar (L): 4+, Achilles Tendon (R): 4+, Achilles Tendon (L): 4+ Psychiatric exam: Present: normal affect, normal mood Skin exam: Present: warm, dry, intact, normal color <Baldemar Baez - Trey Filed: 07/27/20 20:16> Course Vital Signs 07/27/20 07/27/20 12:11 17:10 Temperature 98.2 F 98.9 F Pulse Rate 101 H 84 Respiratory 18 18 Rate Blood Pressure 135/78 175/83 O2 Sat by Pulse 97 100 Oximetry Medical Decision Making - Lab Data Result diagrams: 07/27/20 12:30 07/27/20 15:12 <Baldemar Baez - Last Filed: 07/27/20 20:16> - Lab Data Result diagrams: 07/27/20 12:30 07/27/20 15:12 <Candie Ruiz - Last Filed: 07/28/20 16:23> - Medical Decision Making Patient is a 55-year-old male presenting to emergency departments chief complaint of a seizure. Patient brought to the ED via EMS. On initial evaluation patient is alert and oriented 3. Neurological examination is unremarkable. Initially there was an error with registration which did not allow me to view his past medical record. Full workup was obtained. CT of the brain obtained shows no acute processes. CBC reveals leukocytosis with I suspect secondary to the seizure. CMP reveals hyperkalemia. Potassium levels were redrawn still showing elevated levels of 5.4. Patient was treated with Kayexalate and dextrose with insulin. Initial lactic was 10 which I suspect is secondary to the seizure. Patient was given 1.5 L of IV fluids. Reevaluation the lactic levels decreased to 1.6. Patient does take Keppra daily for his seizures. UA did show positive for ketones which was to be corrected with IV fluids. Urine drug screen does reveal positive for marijuana and cocaine. Patient was advised to follow-up with a neurologist. Recommendations provided. Strict return parameters were thoroughly discussed the patient was understanding and agreeable. Case discussed with physician. (Baldemar Baez) I was available for consultation in the emergency department. The history and physical exam were done by the midlevel provider. I was consulted for this patients care. I reviewed the case with the midlevel provider and based on their presentation of the patient, I agree with the assessment, medical decision making and plan of care as documented. Chart was dictated using My[employer] dictation software. Attempts were made to correct any dictation errors however some typographical errors may persist. Patient was seen during a national state of emergency due to the Covid-19 pandemic. (Candie Ruiz) - Lab Data Lab Results 07/27/20 07/27/20 07/27/20 Range/Units 12:30 12:30 12:30 WBC 16.7 H (3.8-10.6) k/uL RBC 5.08 (4.30-5.90) m/uL Hgb 15.2 (13.0-17.5) gm/dL Hct 46.6 (39.0-53.0) % MCV 91.8 (80.0-100.0) fL MCH 29.9 (25.0-35.0) pg MCHC 32.6 (31.0-37.0) g/dL RDW 14.1 (11.5-15.5) % Plt Count 368 (150-450) k/uL Neutrophils % 69 % Lymphocytes % 24 % Monocytes % 4 % Eosinophils % 1 % Basophils % 1 % Neutrophils # 11.5 H (1.3-7.7) k/uL Lymphocytes # 3.9 (1.0-4.8) k/uL Monocytes # 0.7 (0-1.0) k/uL Eosinophils # 0.2 (0-0.7) k/uL Basophils # 0.1 (0-0.2) k/uL Sodium 137 (137-145) mmol/L Potassium 5.5 H (3.5-5.1) mmol/L Chloride 107 (98-107) mmol/L Carbon Dioxide 12 L (22-30) mmol/L Anion Gap 18 mmol/L BUN 18 (9-20) mg/dL Creatinine 1.07 (0.66-1.25) mg/dL Est GFR (CKD-EPI)AfAm 89 (>60 ml/min/1.73 sqM) Est GFR (CKD-EPI)NonAf 77 (>60 ml/min/1.73 sqM) Glucose 95 (74-99) mg/dL Lactic Ac Sepsis Rflx Plasma Lactic Acid David (0.7-2.0) mmol/L Calcium 9.2 (8.4-10.2) mg/dL Total Bilirubin 1.0 (0.2-1.3) mg/dL AST 46 (17-59) U/L ALT 23 (4-49) U/L Alkaline Phosphatase 82 (38-126) U/L Total Protein 8.5 H (6.3-8.2) g/dL Albumin 4.7 (3.5-5.0) g/dL Urine Color Light Yellow Urine Appearance Clear (Clear) Urine pH 5.5 (5.0-8.0) Ur Specific [place] 1.016 (1.001-1.035) Urine Protein 1+ H (Negative) Urine Glucose (UA) Negative (Negative) Urine Ketones 3+ H (Negative) Urine Blood Small H (Negative) Urine Nitrite Negative (Negative) Urine Bilirubin Negative (Negative) Urine Urobilinogen <2.0 (<2.0) mg/dL Ur Leukocyte Esterase Negative (Negative) Urine RBC 1 (0-5) /hpf Urine WBC <1 (0-5) /hpf Hyaline Casts 11 H (0-2) /lpf Urine Mucus Rare H (None) /hpf Urine Opiates Screen (NotDetected) Ur Oxycodone Screen (NotDetected) Urine Methadone Screen (NotDetected) Ur Propoxyphene Screen (NotDetected) Ur Barbiturates Screen (NotDetected) U Tricyclic Antidepress (NotDetected) Ur Phencyclidine Scrn (NotDetected) Ur Amphetamines Screen (NotDetected) U Methamphetamines Scrn (NotDetected) U Benzodiazepines Scrn (NotDetected) Urine Cocaine Screen (NotDetected) U Marijuana (THC) Screen (NotDetected) Serum Alcohol <10 mg/dL 07/27/20 07/27/20 07/27/20 Range/Units 12:30 12:30 13:07 WBC (3.8-10.6) k/uL RBC (4.30-5.90) m/uL Hgb (13.0-17.5) gm/dL Hct (39.0-53.0) % MCV (80.0-100.0) fL MCH (25.0-35.0) pg MCHC (31.0-37.0) g/dL RDW (11.5-15.5) % Plt Count (150-450) k/uL Neutrophils % % Lymphocytes % % Monocytes % % Eosinophils % % Basophils % % Neutrophils # (1.3-7.7) k/uL Lymphocytes # (1.0-4.8) k/uL Monocytes # (0-1.0) k/uL Eosinophils # (0-0.7) k/uL Basophils # (0-0.2) k/uL Sodium (137-145) mmol/L Potassium (3.5-5.1) mmol/L Chloride (98-107) mmol/L Carbon Dioxide (22-30) mmol/L Anion Gap mmol/L BUN (9-20) mg/dL Creatinine (0.66-1.25) mg/dL Est GFR (CKD-EPI)AfAm (>60 ml/min/1.73 sqM) Est GFR (CKD-EPI)NonAf (>60 ml/min/1.73 sqM) Glucose (74-99) mg/dL Lactic Ac Sepsis Rflx Y Plasma Lactic Acid David 10.9 H* (0.7-2.0) mmol/L Calcium (8.4-10.2) mg/dL Total Bilirubin (0.2-1.3) mg/dL AST (17-59) U/L ALT (4-49) U/L Alkaline Phosphatase (38-126) U/L Total Protein (6.3-8.2) g/dL Albumin (3.5-5.0) g/dL Urine Color Urine Appearance (Clear) Urine pH (5.0-8.0) Ur Specific [place] (1.001-1.035) Urine Protein (Negative) Urine Glucose (UA) (Negative) Urine Ketones (Negative) Urine Blood (Negative) Urine Nitrite (Negative) Urine Bilirubin (Negative) Urine Urobilinogen (<2.0) mg/dL Ur Leukocyte Esterase (Negative) Urine RBC (0-5) /hpf Urine WBC (0-5) /hpf Hyaline Casts (0-2) /lpf Urine Mucus (None) /hpf Urine Opiates Screen Not Detected (NotDetected) Ur Oxycodone Screen Not Detected (NotDetected) Urine Methadone Screen Not Detected (NotDetected) Ur Propoxyphene Screen Not Detected (NotDetected) Ur Barbiturates Screen Not Detected (NotDetected) U Tricyclic Antidepress Not Detected (NotDetected) Ur Phencyclidine Scrn Not Detected (NotDetected) Ur Amphetamines Screen Not Detected (NotDetected) U Methamphetamines Scrn Not Detected (NotDetected) U Benzodiazepines Scrn Not Detected (NotDetected) Urine Cocaine Screen Detected H (NotDetected) U Marijuana (THC) Screen Detected H (NotDetected) Serum Alcohol mg/dL 07/27/20 07/27/20 07/27/20 Range/Units 13:53 15:12 15:12 WBC (3.8-10.6) k/uL RBC (4.30-5.90) m/uL Hgb (13.0-17.5) gm/dL Hct (39.0-53.0) % MCV (80.0-100.0) fL MCH (25.0-35.0) pg MCHC (31.0-37.0) g/dL RDW (11.5-15.5) % Plt Count (150-450) k/uL Neutrophils % % Lymphocytes % % Monocytes % % Eosinophils % % Basophils % % Neutrophils # (1.3-7.7) k/uL Lymphocytes # (1.0-4.8) k/uL Monocytes # (0-1.0) k/uL Eosinophils # (0-0.7) k/uL Basophils # (0-0.2) k/uL Sodium (137-145) mmol/L Potassium 5.4 H (3.5-5.1) mmol/L Chloride (98-107) mmol/L Carbon Dioxide (22-30) mmol/L Anion Gap mmol/L BUN (9-20) mg/dL Creatinine (0.66-1.25) mg/dL Est GFR (CKD-EPI)AfAm (>60 ml/min/1.73 sqM) Est GFR (CKD-EPI)NonAf (>60 ml/min/1.73 sqM) Glucose (74-99) mg/dL Lactic Ac Sepsis Rflx Plasma Lactic Acid David 2.5 H* 1.6 (0.7-2.0) mmol/L Calcium (8.4-10.2) mg/dL Total Bilirubin (0.2-1.3) mg/dL AST (17-59) U/L ALT (4-49) U/L Alkaline Phosphatase (38-126) U/L Total Protein (6.3-8.2) g/dL Albumin (3.5-5.0) g/dL Urine Color Urine Appearance (Clear) Urine pH (5.0-8.0) Ur Specific [place] (1.001-1.035) Urine Protein (Negative) Urine Glucose (UA) (Negative) Urine Ketones (Negative) Urine Blood (Negative) Urine Nitrite (Negative) Urine Bilirubin (Negative) Urine Urobilinogen (<2.0) mg/dL Ur Leukocyte Esterase (Negative) Urine RBC (0-5) /hpf Urine WBC (0-5) /hpf Hyaline Casts (0-2) /lpf Urine Mucus (None) /hpf Urine Opiates Screen (NotDetected) Ur Oxycodone Screen (NotDetected) Urine Methadone Screen (NotDetected) Ur Propoxyphene Screen (NotDetected) Ur Barbiturates Screen (NotDetected) U Tricyclic Antidepress (NotDetected) Ur Phencyclidine Scrn (NotDetected) Ur Amphetamines Screen (NotDetected) U Methamphetamines Scrn (NotDetected) U Benzodiazepines Scrn (NotDetected) Urine Cocaine Screen (NotDetected) U Marijuana (THC) Screen (NotDetected) Serum Alcohol mg/dL Disposition Is patient prescribed a controlled substance at d/c from ED?: No Time of Disposition: 16:13 <Baldemar Baez - Last Filed: 07/27/20 20:16> <Candie Ruiz - Last Filed: 07/28/20 16:23> Clinical Impression: Seizure Disposition: HOME SELF-CARE Condition: Stable Instructions (If sedation given, give patient instructions): Recurrent Seizures in Adults (ED) Additional Instructions: Follow up with a neurologist. Return to emergency department if symptoms worsen. Referrals: None,Stated [Primary Care Provider] - 1-2 days Del Schroeder MD [STAFF PHYSICIAN] - 1-2 days
[2020-07-27 12:45] LABS: Basophils # (A) 0.1 k/uL (0-0.2); Basophils % (A) 1 %; Eosinophils # (A) 0.2 k/uL (0-0.7); Eosinophils % (A) 1 %; HCT 46.6 % (39.0-53.0); HGB 15.2 gm/dL (13.0-17.5); Lymphocytes # (A) 3.9 k/uL (1.0-4.8); Lymphocytes % (A) 24 %; MCH 29.9 pg (25.0-35.0); MCHC 32.6 g/dL (31.0-37.0); MCV 91.8 fL (80.0-100.0); Mean Platelet Volume 7.7; Monocytes # (A) 0.7 k/uL (0-1.0); Monocytes % (A) 4 %; Neutrophils # (A) 11.5 k/uL (1.3-7.7); Neutrophils % (A) 69 %; Platelet Count 368 k/uL (150-450); RBC 5.08 m/uL (4.30-5.90); RDW 14.1 % (11.5-15.5); WBC 16.7 k/uL (3.8-10.6)
[2020-07-27 12:57] LABS: African American GFR (CKD) 89 (>60 ml/min/1.73 sqM); Albumin 4.7 g/dL (3.5-5.0); Alcohol <10 mg/dL; Anion Gap 18 mmol/L; Blood Urea Nitrogen 18 mg/dL (9-20); Calcium 9.2 mg/dL (8.4-10.2); Carbon Dioxide 12 mmol/L (22-30); Chloride 107 mmol/L (98-107); Glucose 95 mg/dL (74-99); Non-African American GFR(CKD) 77 (>60 ml/min/1.73 sqM); Sodium 137 mmol/L (137-145); Total Protein 8.5 g/dL (6.3-8.2)
[2020-07-27 13:03] LABS: ALT 23 U/L (4-49)
[2020-07-27 13:04] LABS: Appearance,Urine Clear (Clear); Bilirubin,Urine Negative (Negative); Blood,Urine Small (Negative); Color,Urine Light Yellow; Glucose,Urine (UA) Negative (Negative); Hyaline Casts,Urine 11 /lpf (0-2); Ketones,Urine 3+ (Negative); Leukocyte Esterase,Urine Negative (Negative); Mucus,Urine Rare /hpf; Nitrite,Urine Negative (Negative); PH, Urine 5.5 (5.0-8.0); Protein,Urine 1+ (Negative); RBC,Urine 1 /hpf (0-5); Specific Gravity,Urine 1.016 (1.001-1.035); Urobilinogen,Urine <2.0 mg/dL (<2.0); WBC,Urine <1 /hpf (0-5)
[2020-07-27 13:05] LABS: AST 46 U/L (17-59); Potassium 5.5 mmol/L (3.5-5.1)
[2020-07-27 13:06] LABS: Alkaline Phosphatase 82 U/L (38-126)
[2020-07-27] MEDS ORDERED: SODIUM CHLORIDE 0.9% 500 ML 500 ML IV STA (13:08)
[2020-07-27 13:14] LABS: Amphetamine Screen,Urine Not Detected (NotDetected); Barbiturate Screen,Urine Not Detected (NotDetected); Benzodiazepines Screen,Urine Not Detected (NotDetected); Cocaine Screen,Urine Detected (NotDetected); Methadone Screen, Urine Not Detected (NotDetected); Opiate Screen,Urine Not Detected (NotDetected); Oxycodone Screen, Urine Not Detected (NotDetected); Phencyclidine Screen,Urine Not Detected (NotDetected); Tricyclic Antidepressant,Urine Not Detected (NotDetected); Urn Cannabinoid Scrn Detected (NotDetected)
--- NOTE | 2020-07-27 14:28 | CT ---
EXAMINATION TYPE: CT brain wo con DATE OF EXAM: 07/27/2020 COMPARISON: None HISTORY: seizure activity today. no known injury CT DLP: 1202.[address] of the brain was performed. The ventricles, basal cisterns and sulci overlying the cerebral convexities demonstrate mild enlargem ent. There is no evidence for intracranial hemorrhage or sulcal effacement. There is decreased attenuation about the periventricular white matter and deep white matter of both c erebral hemispheres, compatible with chronic small vessel ischemia. Differential diagnosis does inclu de demyelination. No mass effects are seen.No midline shift. Osseous calvarium is intact. If symptoms persist consider MRI. IMPRESSION: 1. Age related atrophic and chronic small vessel ischemic change without acute intracranial process s een at this time.
[2020-07-27] MEDS ORDERED: SODIUM POLYSTYRENE SULFONATE 15 GM/60 ML BOTTLE PO STA (15:51)
[2020-07-27] MEDS ORDERED: DEXTROSE 50% SYRINGE 50 ML IVP STA (15:52)
[2020-07-27] MEDS ORDERED: INSULIN REGULAR 100 UNIT/ML VIAL IV ONE (15:53)
[2020-07-27 17:11] VITALS: BP 175/83; PULSE 84; TEMP 98.9
== END 2020-07-27 17:15 | disposition home or self-care (01) ==
LOC: MERGE 12:09 → EC 12:09
DX: G40.909 Epilepsy, unspecified, not intractable, without status epilepticus (principal); D72.829 Elevated white blood cell count, unspecified; E87.5 Hyperkalemia; F12.90 Cannabis use, unspecified, uncomplicated; F17.200 Nicotine dependence, unspecified, uncomplicated
CPT/HCPCS: 36415; 80053; 83605; 84132; 81001; 85025; 80306; 70450; 99285; 96374; 96361 ×5; G0480; 80320

== ENCOUNTER 2020-09-20 10:58 | Emergency (ER) | payer OTHER ==
[2020-09-20 11:03] VITALS: BP 136/85; PULSE 80; RESP 18; TEMP 98.4
--- NOTE | 2020-09-20 11:35 | ED ---
Seizure HPI - General Chief Complaint: Seizure Stated Complaint: Sent by PCP - Seizure Time Seen by Provider: 09/20/20 11:11 Source: patient Mode of arrival: ambulatory Limitations: no limitations - History of Present Illness Initial Comments: 55-year-old male past history of seizures on Keppra 1000 TWICE a day who is currently out of medications presenting for breakthrough seizure. Patient states that he went to his primary care provider this morning because he had a breakthrough seizure yesterday and is out of his Keppra. Patient states he is not sure why he was sent to the emergency department as he does not have any current symptoms and has not had any additional issues with seizures. Patient denies any headaches nausea vomiting he denies feeling dizzy or off balance. Patient denies any weakness or sensation deficits. Patient states he had slight fatigue after his seizure that was witnessed by a friend and Friday however he states he has been feeling fine since. Patient states he has had a previous brain CT is currently looking for neurology follow-up. Patient denies additional complaints he stated to prefer to go home at this time - Related Data Previous Rx's Medication Instructions Recorded levETIRAcetam [Keppra] 1,500 mg PO Q12HR #180 tablet 03/31/20 levETIRAcetam [Keppra] 1,000 mg PO Q12HR 30 Days #60 tab 09/20/20 Allergies Allergy/AdvReac Type Severity Reaction Status Date / Time No Known Allergies Allergy Verified 09/20/20 11:02 Review of Systems ROS Statement: Those systems with pertinent positive or pertinent negative responses have been documented in the HPI. ROS Other: All systems not noted in ROS Statement are negative. Past Medical History Past Medical History: Asthma, Hypertension, Seizure Disorder Additional Past Medical History / Comment(s): occ. Hypertension/ no meds, seizure 08/2019 takes Keppra at home History of Any Multi-Drug Resistant Organisms: None Reported Past Surgical History: Orthopedic Surgery Additional Past Surgical History / Comment(s): neck fusion; R ankle Past Anesthesia/Blood Transfusion Reactions: No Reported Reaction Past Psychological History: No Psychological Hx Reported Smoking Status: Former smoker Past Alcohol Use History: Occasional Past Drug Use History: None Reported - Past Family History Mother Family Medical History: No Reported History General Exam - General Exam Comments Initial Comments: General: The patient is awake and alert, in no distress, and does not appear acutely ill. Eye: +3 mm pupils are equal, round and reactive to light, extra-ocular movements are intact. No nystagmus. There is normal conjunctiva bilaterally. No signs of icterus. Ears, nose, mouth and throat: There are moist mucous membranes and no oral lesions. Neck: The neck is supple, there is no tenderness or JVD. Cardiovascular: There is a regular rate and rhythm. No murmur, rub or gallop is appreciated. Respiratory: Lungs are clear to auscultation, respirations are non-labored, breath sounds are equal. No wheezes, stridor, rales, or rhonchi. Musculoskeletal: Normal ROM, no tenderness. Strength 5/5 of the UE and LE equal in comparison b/l. Sensation intact. Pulses equal bilaterally 2+. Neurological: A&O x 3. CN II-XII intact, There are no obvious motor or sensory deficits. Coordination appears grossly intact. Speech is normal. No pronator drift Skin: Skin is warm and dry and no rashes or lesions are noted. Psychiatric: Cooperative, appropriate mood & affect, normal judgment. Limitations: no limitations Course Vital Signs 09/20/20 10:59 Temperature 98.4 F Pulse Rate 80 Respiratory 18 Rate Blood Pressure 136/85 O2 Sat by Pulse 100 Oximetry Medical Decision Making - Medical Decision Making Very pleasant 55-year-old known history of recurrent seizures on antiepileptic medication patient currently is out of medications. Had breakthrough seizure. Patient has no focal neurological deficits. He has no current complaints he states that he prefers not to have a workup done. I did recommend patient having outpatient neurological follow-up as well as outpatient MRI otherwise at this time patient was given a loading dose of Keppra and prescribed his current daily regimen and a 30 day supply. Discussed the case with the provider Dr. Joe who is agreeable to care for discharge at this time Disposition Clinical Impression: Recurrent seizures Disposition: HOME SELF-CARE Condition: Good Instructions (If sedation given, give patient instructions): Recurrent Seizures in Adults (ED) Additional Instructions: Please use medication as discussed. Please follow-up with family doctor in the next 2 days, recommend outpatient MRI, neurology follow-up. Please return to emergency room if the symptoms increase or worsen or for any other concerns. Prescriptions: levETIRAcetam [Keppra] 1,000 mg PO Q12HR 30 Days #60 tab Is patient prescribed a controlled substance at d/c from ED?: No Referrals: Lucie Yap MD [Primary Care Provider] - 1-2 days Keely Mai MD [REFERRING] - 1-2 days Time of Disposition: 11:35
== END 2020-09-20 11:53 | disposition home or self-care (01) ==
LOC: EC 10:58
DX: G40.909 Epilepsy, unspecified, not intractable, without status epilepticus (principal); Z87.891 Personal history of nicotine dependence
CPT/HCPCS: 99283

== ENCOUNTER → 2022-04-26 | Outpatient (CLI) | payer OTHER | END | disposition home or self-care (01) | LOC: LABWHC1 10:13 | PROVIDERS: ATTEND Psychiatry & Neurology Neurology | DX: G40.109 Localization-related (focal) (partial) symptomatic epilepsy and epileptic syndromes with simple partial seizures, not intractable, without status epilepticus (principal) | CPT/HCPCS: U0003; C9803 ==

== ENCOUNTER 2022-04-30 00:28 | Emergency (ER) | payer OTHER ==
[2022-04-30 00:39] VITALS: RESP 18
[2022-04-30] MEDS ORDERED: SODIUM CHLORIDE 0.9% 500 ML 500 ML IV STA (01:01)
[2022-04-30] MEDS ORDERED: LORazepam 2 MG/ML INJ IV STA (01:01)
[2022-04-30] MEDS ORDERED: levETIRAcetam IV 1,000 MG in SALINE 1 100ML.BAG IVPB STA (01:01)
--- NOTE | 2022-04-30 01:20 | ED ---
Seizure HPI - General Chief Complaint: Seizure Stated Complaint: seizure Time Seen by Provider: 04/30/22 00:45 Source: patient, RN notes reviewed, old records reviewed Mode of arrival: EMS Limitations: altered mental status, physical limitation (Postictal state) - History of Present Illness Initial Comments: This is a 57-year-old male DF for evaluation patient presents with seizure likely noncompliant seizure as his been off his Keppra and did not give medication refilled. Patient at this time presents DF for evaluation of seizure he is postictal history. From EMS as well as patient's chart MD Complaint: seizure -: minutes(s) Description of Episode: loss of consciousness, tonic-clonic movement, post-event confusion -: second(s) Witnessed: yes - by bystander Trauma: Yes Seizure History: known seizure disorder Possible Precipitating Event: none Associated Symptoms: denies other symptoms Treatments Prior to Arrival: none - Related Data Previous Rx's Medication Instructions Recorded levETIRAcetam [Keppra] 1,500 mg PO Q12HR #180 tablet 03/31/20 levETIRAcetam [Keppra] 1,000 mg PO Q12HR 30 Days #60 tab 09/20/20 Allergies Allergy/AdvReac Type Severity Reaction Status Date / Time No Known Allergies Allergy Verified 04/30/22 00:39 Review of Systems ROS Statement: Those systems with pertinent positive or pertinent negative responses have been documented in the HPI. ROS Other: All systems not noted in ROS Statement are negative. Past Medical History Past Medical History: Asthma, Hypertension, Seizure Disorder Additional Past Medical History / Comment(s): occ. Hypertension/ no meds, seizure 08/2019 takes Keppra at home History of Any Multi-Drug Resistant Organisms: None Reported Past Surgical History: Orthopedic Surgery Additional Past Surgical History / Comment(s): neck fusion; R ankle Past Anesthesia/Blood Transfusion Reactions: No Reported Reaction Past Psychological History: No Psychological Hx Reported Smoking Status: Former smoker Past Alcohol Use History: Occasional Past Drug Use History: None Reported - Past Family History Mother Family Medical History: No Reported History General Exam Limitations: altered mental status General appearance: alert, in no apparent distress Head exam: Present: atraumatic, normocephalic, normal inspection Eye exam: Present: normal appearance, PERRL, EOMI. Absent: scleral icterus, conjunctival injection, periorbital swelling ENT exam: Present: normal exam, mucous membranes moist Neck exam: Present: normal inspection. Absent: tenderness, meningismus, lymphadenopathy Respiratory exam: Present: normal lung sounds bilaterally. Absent: respiratory distress, wheezes, rales, rhonchi, stridor Cardiovascular Exam: Present: regular rate, normal rhythm, normal heart sounds. Absent: systolic murmur, diastolic murmur, rubs, gallop, clicks GI/Abdominal exam: Present: soft, normal bowel sounds. Absent: distended, tenderness, guarding, rebound, rigid Extremities exam: Present: normal inspection, full ROM, normal capillary refill. Absent: tenderness, pedal edema, joint swelling, calf tenderness Back exam: Present: normal inspection Neurological exam: Present: alert, oriented X3, CN II-XII intact Psychiatric exam: Present: normal affect, normal mood Skin exam: Present: warm, dry, intact, normal color. Absent: rash Course Vital Signs 04/30/22 04/30/22 00:35 01:39 Temperature 97.4 F L Pulse Rate 84 75 Respiratory 18 18 Rate Blood Pressure 162/101 145/81 O2 Sat by Pulse 98 97 Oximetry - Reevaluation(s) Reevaluation #1: 04/30/22 02:49 Medical record is reviewed Reevaluation #2: 04/30/22 02:49 Patient is at baseline Reevaluation #3: 04/30/22 02:49 Patient informed of results and questions answered Medical Decision Making - Medical Decision Making 57 male to the emergency department with seizure disorder presents with recurrent seizure secondary to noncompliance. Patient given medications to last one day as well as refills on prescriptions and can be discharged home - Lab Data Result diagrams: 04/30/22 01:21 04/30/22 01:21 Lab Results 04/30/22 04/30/22 Range/Units 01:21 01:21 WBC 9.9 (3.8-10.6) k/uL RBC 5.40 (4.30-5.90) m/uL Hgb 15.9 (13.0-17.5) gm/dL Hct 50.6 (39.0-53.0) % MCV 93.6 (80.0-100.0) fL MCH 29.4 (25.0-35.0) pg MCHC 31.4 (31.0-37.0) g/dL RDW 13.8 (11.5-15.5) % Plt Count 342 (150-450) k/uL MPV 9.0 Neutrophils % 46 % Lymphocytes % 43 % Monocytes % 5 % Eosinophils % 1 % Basophils % 2 % Neutrophils # 4.6 (1.3-7.7) k/uL Lymphocytes # 4.3 (1.0-4.8) k/uL Monocytes # 0.5 (0-1.0) k/uL Eosinophils # 0.1 (0-0.7) k/uL Basophils # 0.2 (0-0.2) k/uL Sodium 137 (137-145) mmol/L Potassium 4.2 (3.5-5.1) mmol/L Chloride 102 (98-107) mmol/L Carbon Dioxide 22 (22-30) mmol/L Anion Gap 13 mmol/L BUN 15 (9-20) mg/dL Creatinine 0.95 (0.66-1.25) mg/dL Est GFR (CKD-EPI)AfAm >90 (>60 ml/min/1.73 sqM) Est GFR (CKD-EPI)NonAf 88 (>60 ml/min/1.73 sqM) Glucose 142 H (74-99) mg/dL Calcium 9.1 (8.4-10.2) mg/dL Magnesium 1.8 (1.6-2.3) mg/dL Total Bilirubin 0.4 (0.2-1.3) mg/dL AST 27 (17-59) U/L ALT 15 (4-49) U/L Alkaline Phosphatase 63 (38-126) U/L Total Protein 7.6 (6.3-8.2) g/dL Albumin 4.5 (3.5-5.0) g/dL Salicylates <1.0 mg/dL Acetaminophen <10.0 ug/mL Serum Alcohol <10 mg/dL Disposition Clinical Impression: Generalized seizure, Epileptic seizure, generalized Disposition: HOME SELF-CARE Condition: Good Instructions (If sedation given, give patient instructions): Seizure/Epilepsy Discharge Instructions & Follow-Up, Recurrent Seizures in Adults (ED) Is patient prescribed a controlled substance at d/c from ED?: No Referrals: Lucie Yap MD [REFERRING] - 1-2 days
[2022-04-30 01:43] LABS: Basophils # (A) 0.2 k/uL (0-0.2); Basophils % (A) 2 %; Eosinophils # (A) 0.1 k/uL (0-0.7); Eosinophils % (A) 1 %; HCT 50.6 % (39.0-53.0); HGB 15.9 gm/dL (13.0-17.5); Lymphocytes # (A) 4.3 k/uL (1.0-4.8); Lymphocytes % (A) 43 %; MCH 29.4 pg (25.0-35.0); MCHC 31.4 g/dL (31.0-37.0); MCV 93.6 fL (80.0-100.0); Monocytes # (A) 0.5 k/uL (0-1.0); Monocytes % (A) 5 %; Neutrophils # (A) 4.6 k/uL (1.3-7.7); Neutrophils % (A) 46 %; Platelet Count 342 k/uL (150-450); RDW 13.8 % (11.5-15.5); WBC 9.9 k/uL (3.8-10.6)
[2022-04-30 02:06] LABS: ALT 15 U/L (4-49); AST 27 U/L (17-59); Acetaminophen <10.0 ug/mL; African American GFR (CKD) >90 (>60 ml/min/1.73 sqM); Albumin 4.5 g/dL (3.5-5.0); Alcohol <10 mg/dL; Alkaline Phosphatase 63 U/L (38-126); Anion Gap 13 mmol/L; Blood Urea Nitrogen 15 mg/dL (9-20); Calcium 9.1 mg/dL (8.4-10.2); Carbon Dioxide 22 mmol/L (22-30); Chloride 102 mmol/L (98-107); Glucose 142 mg/dL (74-99); Magnesium 1.8 mg/dL (1.6-2.3); Non-African American GFR(CKD) 88 (>60 ml/min/1.73 sqM); Potassium 4.2 mmol/L (3.5-5.1); Salicylate <1.0 mg/dL; Sodium 137 mmol/L (137-145); Total Bilirubin 0.4 mg/dL (0.2-1.3); Total Protein 7.6 g/dL (6.3-8.2)
[2022-04-30] MEDS ORDERED: levETIRAcetam 500 MG TAB PO STA ×2 (02:50)
[2022-04-30 04:13] VITALS: BP 129/87; PULSE 74; TEMP 98.1
== END 2022-04-30 04:11 | disposition home or self-care (01) ==
LOC: EC 00:28
DX: G40.409 Other generalized epilepsy and epileptic syndromes, not intractable, without status epilepticus (principal); I10 Essential (primary) hypertension; J45.909 Unspecified asthma, uncomplicated; Z87.891 Personal history of nicotine dependence
CPT/HCPCS: 36415; 80053; 80177; 83735; 85025; 80143; 80179; 99285; 96365; 96375; 96361; G0480; J2060; J1953; 80320

== ENCOUNTER → 2022-05-03 | Outpatient (CLI) | payer OTHER | END | disposition home or self-care (01) | LOC: LABWHC1 09:29 | PROVIDERS: ATTEND Psychiatry & Neurology Neurology | DX: G40.019 Localization-related (focal) (partial) idiopathic epilepsy and epileptic syndromes with seizures of localized onset, intractable, without status epilepticus (principal) | CPT/HCPCS: U0003; C9803 ==

== ENCOUNTER 2022-11-08 14:04 | Emergency (ER) | payer OTHER ==
[2022-11-08] MEDS ORDERED: SODIUM CHLORIDE 0.9% 500 ML 500 ML IV STA (14:15)
[2022-11-08] MEDS ORDERED: levETIRAcetam IV 1,500 MG in SALINE 1 100ML.BAG IVPB STA (14:22)
[2022-11-08 14:45] LABS: Basophils % (A) 1 %; Eosinophils # (A) 0.1 k/uL (0-0.7); Eosinophils % (A) 1 %; HCT 45.8 % (39.0-53.0); HGB 15.2 gm/dL (13.0-17.5); Lymphocytes # (A) 2.5 k/uL (1.0-4.8); Lymphocytes % (A) 33 %; MCH 30.6 pg (25.0-35.0); MCHC 33.3 g/dL (31.0-37.0); MCV 92.1 fL (80.0-100.0); Mean Platelet Volume 8.8; Monocytes # (A) 0.4 k/uL (0-1.0); Monocytes % (A) 5 %; Neutrophils # (A) 4.4 k/uL (1.3-7.7); Neutrophils % (A) 57 %; Platelet Count 286 k/uL (150-450); RBC 4.97 m/uL (4.30-5.90); RDW 14.2 % (11.5-15.5); WBC 7.6 k/uL (3.8-10.6)
[2022-11-08 14:58] LABS: ALT 25 U/L (4-49); AST 37 U/L (17-59); African American GFR (CKD) >90 (>60 ml/min/1.73 sqM); Albumin 4.6 g/dL (3.5-5.0); Alkaline Phosphatase 67 U/L (38-126); Anion Gap 13 mmol/L; Blood Urea Nitrogen 13 mg/dL (9-20); Calcium 9.1 mg/dL (8.4-10.2); Carbon Dioxide 21 mmol/L (22-30); Chloride 106 mmol/L (98-107); Glucose 96 mg/dL (74-99); Magnesium 2.1 mg/dL (1.6-2.3); Non-African American GFR(CKD) >90 (>60 ml/min/1.73 sqM); Potassium 4.2 mmol/L (3.5-5.1); Sodium 140 mmol/L (137-145); Total Bilirubin 0.9 mg/dL (0.2-1.3); Total Protein 7.8 g/dL (6.3-8.2)
--- NOTE | 2022-11-08 15:15 | ED ---
Seizure HPI - General Chief Complaint: Seizure Stated Complaint: seizure Time Seen by Provider: 11/08/22 14:05 Source: patient, EMS, RN notes reviewed Mode of arrival: EMS Limitations: no limitations - History of Present Illness Initial Comments: This a 57-year-old male presents to emergency dept via EMS chief complaint of seizure. Patient had a witnessed seizure with no head injury. Patient has a history of seizure states is an 50 mg twice daily states she's missed a few doses over the last couple days. Patient denies any current complaints patient did have some mild postictal state but is improved at this time. Patient denies head neck chest back or abdominal complaints. - Related Data Previous Rx's Medication Instructions Recorded levETIRAcetam [Keppra] 1,500 mg PO Q12HR #180 tablet 03/31/20 levETIRAcetam [Keppra] 1,000 mg PO Q12HR 30 Days #60 tab 09/20/20 Allergies Allergy/AdvReac Type Severity Reaction Status Date / Time No Known Allergies Allergy Verified 04/30/22 00:39 Review of Systems ROS Statement: Those systems with pertinent positive or pertinent negative responses have been documented in the HPI. ROS Other: All systems not noted in ROS Statement are negative. Past Medical History Past Medical History: Asthma, Hypertension, Seizure Disorder Additional Past Medical History / Comment(s): occ. Hypertension/ no meds, seizure 08/2019 takes Keppra at home History of Any Multi-Drug Resistant Organisms: None Reported Past Surgical History: Orthopedic Surgery Additional Past Surgical History / Comment(s): neck fusion; R ankle Past Anesthesia/Blood Transfusion Reactions: No Reported Reaction Past Psychological History: No Psychological Hx Reported Smoking Status: Former smoker Past Alcohol Use History: Occasional Past Drug Use History: None Reported - Past Family History Mother Family Medical History: No Reported History General Exam Limitations: no limitations General appearance: alert, in no apparent distress Head exam: Present: atraumatic, normocephalic, normal inspection Eye exam: Present: normal appearance, PERRL, EOMI. Absent: scleral icterus, conjunctival injection, periorbital swelling ENT exam: Present: normal exam, normal oropharynx, mucous membranes moist Neck exam: Present: normal inspection, full ROM. Absent: tenderness, meningismus, lymphadenopathy Respiratory exam: Present: normal lung sounds bilaterally. Absent: respiratory distress, wheezes, rales, rhonchi, stridor Cardiovascular Exam: Present: regular rate, normal rhythm, normal heart sounds. Absent: systolic murmur, diastolic murmur, rubs, gallop, clicks Extremities exam: Present: normal inspection, full ROM, normal capillary refill. Absent: tenderness, pedal edema, joint swelling, calf tenderness Neurological exam: Present: alert, oriented X3, CN II-XII intact, reflexes normal. Absent: motor sensory deficit Skin exam: Present: warm, dry, intact, normal color. Absent: rash Course Vital Signs 11/08/22 14:06 Temperature 97.9 F Pulse Rate 92 Respiratory 18 Rate Blood Pressure 160/95 O2 Sat by Pulse 100 Oximetry Medical Decision Making - Medical Decision Making 57-year-old male presented for seizure. Patient has a history of seizures patient most likely had a breakthrough seizure secondary to medication noncompliance. Patient had no head or neck complaints of head injury with a history of seizures CT we was not obtained at this time given no focal weakness or headache injury. Patient was given Keppra IV will be discharged in stable condition to parameters discussed. - Lab Data Result diagrams: 11/08/22 14:34 11/08/22 14:34 Lab Results 11/08/22 11/08/22 Range/Units 14:34 14:34 WBC 7.6 (3.8-10.6) k/uL RBC 4.97 (4.30-5.90) m/uL Hgb 15.2 (13.0-17.5) gm/dL Hct 45.8 (39.0-53.0) % MCV 92.1 (80.0-100.0) fL MCH 30.6 (25.0-35.0) pg MCHC 33.3 (31.0-37.0) g/dL RDW 14.2 (11.5-15.5) % Plt Count 286 (150-450) k/uL MPV 8.8 Neutrophils % 57 % Lymphocytes % 33 % Monocytes % 5 % Eosinophils % 1 % Basophils % 1 % Neutrophils # 4.4 (1.3-7.7) k/uL Lymphocytes # 2.5 (1.0-4.8) k/uL Monocytes # 0.4 (0-1.0) k/uL Eosinophils # 0.1 (0-0.7) k/uL Basophils # 0.0 (0-0.2) k/uL Sodium 140 (137-145) mmol/L Potassium 4.2 (3.5-5.1) mmol/L Chloride 106 (98-107) mmol/L Carbon Dioxide 21 L (22-30) mmol/L Anion Gap 13 mmol/L BUN 13 (9-20) mg/dL Creatinine 0.87 (0.66-1.25) mg/dL Est GFR (CKD-EPI)AfAm >90 (>60 ml/min/1.73 sqM) Est GFR (CKD-EPI)NonAf >90 (>60 ml/min/1.73 sqM) Glucose 96 (74-99) mg/dL Calcium 9.1 (8.4-10.2) mg/dL Magnesium 2.1 (1.6-2.3) mg/dL Total Bilirubin 0.9 (0.2-1.3) mg/dL AST 37 (17-59) U/L ALT 25 (4-49) U/L Alkaline Phosphatase 67 (38-126) U/L Total Protein 7.8 (6.3-8.2) g/dL Albumin 4.6 (3.5-5.0) g/dL Disposition Clinical Impression: Generalized seizure Disposition: HOME SELF-CARE Condition: Stable Instructions (If sedation given, give patient instructions): Seizure/Epilepsy Discharge Instructions & Follow-Up, Recurrent Seizures in Adults (ED) Additional Instructions: Please return to the Emergency Department if symptoms worsen or any other concerns. Is patient prescribed a controlled substance at d/c from ED?: No Referrals: Casper Barcenas MD [Primary Care Provider] - 1-2 days Time of Disposition: 15:14
[2022-11-08 15:36] VITALS: BP 157/93; PULSE 76; RESP 19; TEMP 98.2
== END 2022-11-08 15:44 | disposition home or self-care (01) ==
LOC: EC 14:04
DX: R56.9 Unspecified convulsions (principal); I10 Essential (primary) hypertension; J45.909 Unspecified asthma, uncomplicated; Z87.891 Personal history of nicotine dependence
CPT/HCPCS: 36415; 93005; 80053; 80177; 83735; 85025; 99284; 96374; 96361; J1953

== ENCOUNTER 2023-07-17 04:26 | Emergency (ER) | payer MEDICARE, OTHER ==
[2023-07-17 04:31] VITALS: RESP 18
--- NOTE | 2023-07-17 04:37 | ED ---
Seizure HPI - General Source: EMS, RN notes reviewed, old records reviewed Mode of arrival: EMS Limitations: no limitations - History of Present Illness MD Complaint: seizure -: hour(s) Description of Episode: loss of consciousness, tonic-clonic movement, post-event confusion -: second(s) Witnessed: yes - by bystander Trauma: Yes Seizure History: known seizure disorder, history of withdrawal seizures, history of non-compliance with treatment Place: home Possible Precipitating Event: none Associated Symptoms: denies other symptoms Treatments Prior to Arrival: none <Hank Raygoza - Last Filed: 07/17/23 06:08> <Nas Su - Last Filed: 07/17/23 07:53> - General Chief Complaint: Seizure Stated Complaint: Seizure Time Seen by Provider: 07/17/23 04:37 - History of Present Illness Initial Comments: This is a 58-year-old male to the emergency department for evaluation today. Presents today for evaluation regards to seizure. Seizure-like activity with known history of seizures. Patient is not taking his seizure medication for the last 2-3 days. She currently awake alert able answer questions without diffic ulty. (Hank Raygoza) - Related Data Previous Rx's Medication Instructions Recorded levETIRAcetam [Keppra] 1,500 mg PO Q12HR #180 tablet 03/31/20 levETIRAcetam [Keppra] 1,000 mg PO Q12HR 30 Days #60 tab 09/20/20 Allergies Allergy/AdvReac Type Severity Reaction Status Date / Time No Known Allergies Allergy Verified 07/17/23 04:31 Review of Systems ROS Other: All systems not noted in ROS Statement are negative. <Hank Raygoza - Last Filed: 07/17/23 06:08> ROS Other: All systems not noted in ROS Statement are negative. <Nas Su - Last Filed: 07/17/23 07:53> ROS Statement: Those systems with pertinent positive or pertinent negative responses have been documented in the HPI. Past Medical History Past Medical History: Asthma, Hypertension, Seizure Disorder Additional Past Medical History / Comment(s): occ. Hypertension/ no meds, seizure 08/2019 takes Keppra at home History of Any Multi-Drug Resistant Organisms: None Reported Past Surgical History: Orthopedic Surgery Additional Past Surgical History / Comment(s): neck fusion; R ankle Past Anesthesia/Blood Transfusion Reactions: No Reported Reaction Past Psychological History: No Psychological Hx Reported Smoking Status: Former smoker Past Alcohol Use History: Occasional Past Drug Use History: Marijuana - Past Family History Mother Family Medical History: No Reported History <Hank Raygoza - Last Filed: 07/17/23 06:08> General Exam General appearance: alert, in no apparent distress, appears intoxicated, anxious Head exam: Present: atraumatic, normocephalic, normal inspection Eye exam: Present: normal appearance, PERRL, EOMI. Absent: scleral icterus, conjunctival injection, periorbital swelling ENT exam: Present: normal exam, mucous membranes moist Neck exam: Present: normal inspection. Absent: tenderness, meningismus, lymphadenopathy Respiratory exam: Present: normal lung sounds bilaterally. Absent: respiratory distress, wheezes, rales, rhonchi, stridor Cardiovascular Exam: Present: regular rate, normal rhythm, normal heart sounds. Absent: systolic murmur, diastolic murmur, rubs, gallop, clicks GI/Abdominal exam: Present: soft, normal bowel sounds. Absent: distended, tenderness, guarding, rebound, rigid Extremities exam: Present: normal inspection, full ROM, normal capillary refill. Absent: tenderness, pedal edema, joint swelling, calf tenderness Back exam: Present: normal inspection Neurological exam: Present: alert, oriented X3, CN II-XII intact Psychiatric exam: Present: normal affect, normal mood Skin exam: Present: warm, dry, intact, normal color. Absent: rash <Hank Raygoza - Last Filed: 07/17/23 06:08> Course <Hank Raygoza - Last Filed: 07/17/23 06:08> Vital Signs 07/17/23 07/17/23 04:27 06:25 Temperature 98.0 F Pulse Rate 85 80 Respiratory 18 18 Rate Blood Pressure 161/103 140/84 O2 Sat by Pulse 99 100 Oximetry - Reevaluation(s) Reevaluation #1: 07/17/23 06:09 Medical records reviewed (Hank Raygoza) Reevaluation #2: 07/17/23 06:10 Patient has no recurrent seizure-like activity here in the ER but does seem to continue to somnolent (Hank Raygoza) Reevaluation #3: 07/17/23 06:10 Patient informed results questions answered (Hank Raygoza) Reevaluation #4: 07/17/23 06:10 Was pt. sent in by a medical professional or institution ([facility]ARGARETTE Messer, [employer], urgent care, hospital, or care home...) When possible be specific @ -no Did you speak to anyone other than the patient for history (EMS, parent, family, police, friend...)? What history was obtained from this source @ -no Did you review nursing and triage notes (agree or disagree)? Why? @ -agree Are old charts reviewed (outside hosp., previous admission, EMS record, old EKG, old radiological studies, urgent care reports/EKG's, care home records)? Report findings @ -yes Differential Diagnosis (chest pain, altered mental status, abdominal pain women, abdominal pain men, vaginal bleeding, weakness, fever, dyspnea, syncope, headache, dizziness, GI bleed, back pain, seizure, CVA, palpatations, mental health, musculoskeletal)? @ -prior EKG interpreted by me (3pts min.). @ -yes X-rays interpreted by me (1pt min.). @ -yes CT interpreted by me (1pt min.). @ -no U/S interpreted by me (1pt. min.). @ -no What testing was considered but not performed or refused? (CT, X-rays, U/S, labs)? Why? @ -none What meds were considered but not given or refused? Why? @ -none Did you discuss the management of the patient with other professionals (professionals i.e. MARGARETTE Messer, [employer], lab, RT, psych nurse, health care social worker, telegraph and teletype operator, teacher, airfield services officer, case manager specialist)? Give summary @ -no Was smoking cessation discussed for >3mins.? @ -no Was critical care preformed (if so, how long)? @ -no Were there social determinants of health that impacted care today? How? (Homelessness, low income, unemployed, alcoholism, drug addiction, transportation, low edu. Level, literacy, decrease access to med. care, snf, rehab)? @ -none Was there de-escalation of care discussed even if they declined (Discuss DNR or withdrawal of care, Hospice)? DNR status @ -no What co-morbidities impacted this encounter? (DM, HTN, Smoking, COPD, CAD, Cancer, CVA, ARF, Chemo, Hep., AIDS, mental health diagnosis, sleep apnea, morbid obesity)? @ -none Was patient admitted / discharged? Hospital course, mention meds given and route, prescriptions, significant lab abnormalities, going to OR and other pertinent info. @ - Undiagnosed new problem with uncertain prognosis? @ -no Drug Therapy requiring intensive monitoring for toxicity (Heparin, Nitro, Insulin, Cardizem)? @ -no Were any procedures done? @ -no Diagnosis/symptom? @ - Acute, or Chronic, or Acute on Chronic? @ -Acute Uncomplicated (without systemic symptoms) or Complicated (systemic symptoms)? @ -Complicated Side effects of treatment? @ -no Exacerbation, Progression, or Severe Exacerbation? @ -exacerbation Poses a threat to life or bodily function? How? (Chest pain, [place], [place], pneumonia, PE, COPD, DKA, ARF, appy, cholecystitis, CVA, Diverticulitis, Homicidal, Suicidal, threat to staff... and all critical care pts) @ -yes (Hank Raygoza) Reevaluation #5: 07/17/23 06:10 Differential Seizure: Recurrent seizure disorder, febrile seizure, alcohol withdrawal, stimulants, meningitis, encephalitis, intercranial hemorrhage, intracranial tumor, stroke, eclampsia, thyrotoxicosis, hypocalcemia, hyponatremia, hypernatremia, hypomagnesemia, psychogenic, this is not meant to be an all-inclusive list. (Hank Raygoza) Medical Decision Making - Lab Data Result diagrams: 07/17/23 04:29 - EKG Data -: EKG Interpreted by Me (EKG sinus 78 VA 136 QRS 73 QTc 405) <Hank Raygoza - Last Filed: 07/17/23 06:08> - Lab Data Result diagrams: 07/17/23 04:29 07/17/23 06:30 <Nas Su - Last Filed: 07/17/23 07:53> - Medical Decision Making Head and cervical spine reported by radiology as no acute process. Patient reevaluated by myself, Dr. Su. Patient resting comfortably in bed. Patient alert and appropriate. Patient admits to not taking his medications for the past 2-3 days. Patient states he does have some at home and will start taking this again. Patient updated on results and need for follow-up. Diagnosis: Seizure, acute (Nas Su) - Lab Data Lab Results 07/17/23 07/17/23 Range/Units 04:29 06:30 WBC 9.2 (3.8-10.6) k/uL RBC 5.51 (4.30-5.90) m/uL Hgb 17.2 (13.0-17.5) gm/dL Hct 52.7 (39.0-53.0) % MCV 95.7 (80.0-100.0) fL MCH 31.2 (25.0-35.0) pg MCHC 32.6 (31.0-37.0) g/dL RDW 14.0 (11.5-15.5) % Plt Count 376 (150-450) k/uL MPV 8.1 Neutrophils % 34 % Lymphocytes % 55 % Monocytes % 7 % Eosinophils % 2 % Basophils % 1 % Neutrophils # 3.1 (1.3-7.7) k/uL Lymphocytes # 5.0 H (1.0-4.8) k/uL Monocytes # 0.6 (0-1.0) k/uL Eosinophils # 0.2 (0-0.7) k/uL Basophils # 0.0 (0-0.2) k/uL Manual Slide Review Performed Sodium 137 (137-145) mmol/L Potassium 4.9 (3.5-5.1) mmol/L Chloride 103 (98-107) mmol/L Carbon Dioxide 24 (22-30) mmol/L Anion Gap 10 mmol/L BUN 19 (9-20) mg/dL Creatinine 1.03 (0.66-1.25) mg/dL Est GFR (CKD-EPI)AfAm >90 (>60 ml/min/1.73 sqM) Est GFR (CKD-EPI)NonAf 79 (>60 ml/min/1.73 sqM) Glucose 104 H (74-99) mg/dL Calcium 9.2 (8.4-10.2) mg/dL Magnesium 1.9 (1.6-2.3) mg/dL Total Bilirubin 0.6 (0.2-1.3) mg/dL AST 60 H (17-59) U/L ALT 31 (4-49) U/L Alkaline Phosphatase 62 (38-126) U/L Total Protein 7.6 (6.3-8.2) g/dL Albumin 4.1 (3.5-5.0) g/dL Disposition <Hank Raygoza - Last Filed: 07/17/23 06:08> Is patient prescribed a controlled substance at d/c from ED?: No Time of Disposition: 07:53 <Nas Su - Last Filed: 07/17/23 07:53> Clinical Impression: Generalized seizure Disposition: HOME SELF-CARE Condition: Stable Instructions (If sedation given, give patient instructions): Seizure/Epilepsy Discharge Instructions & Follow-Up, Recurrent Seizures in Adults (ED) Additional Instructions: Please do follow-up through primary care physician in the next day or 2 for recheck. Do not miss your medication. Please start medication this morning. Return for increased seizures, weakness, worsening symptoms or any other concerns. Referrals: Casper Barcenas MD [Primary Care Provider] - 1-2 days
[2023-07-17] MEDS ORDERED: SODIUM CHLORIDE 0.9% 1,000 ML IV STA (04:40)
[2023-07-17] MEDS ORDERED: LORazepam 2 MG/ML INJ IV STA (04:40)
[2023-07-17] MEDS ORDERED: PHENYTOIN SODIUM INJ 1,500 MG in SODIUM CHLORIDE 0.9% 100 ML IVPB STA (04:40)
[2023-07-17 05:09] LABS: Basophils % (A) 1 %; Eosinophils # (A) 0.2 k/uL (0-0.7); Eosinophils % (A) 2 %; HCT 52.7 % (39.0-53.0); HGB 17.2 gm/dL (13.0-17.5); Lymphocytes % (A) 55 %; MCH 31.2 pg (25.0-35.0); MCHC 32.6 g/dL (31.0-37.0); MCV 95.7 fL (80.0-100.0); Mean Platelet Volume 8.1; Monocytes # (A) 0.6 k/uL (0-1.0); Monocytes % (A) 7 %; Neutrophils # (A) 3.1 k/uL (1.3-7.7); Neutrophils % (A) 34 %; Platelet Count 376 k/uL (150-450); RBC 5.51 m/uL (4.30-5.90); WBC 9.2 k/uL (3.8-10.6)
[2023-07-17] MEDS ORDERED: TOPICAL SKIN ADHESIVE 1 EACH AMP TOPICAL ONE (05:37)
[2023-07-17 07:03] LABS: ALT 31 U/L (4-49); AST 60 U/L (17-59); African American GFR (CKD) >90 (>60 ml/min/1.73 sqM); Albumin 4.1 g/dL (3.5-5.0); Alkaline Phosphatase 62 U/L (38-126); Anion Gap 10 mmol/L; Blood Urea Nitrogen 19 mg/dL (9-20); Calcium 9.2 mg/dL (8.4-10.2); Carbon Dioxide 24 mmol/L (22-30); Chloride 103 mmol/L (98-107); Glucose 104 mg/dL (74-99); Magnesium 1.9 mg/dL (1.6-2.3); Non-African American GFR(CKD) 79 (>60 ml/min/1.73 sqM); Potassium 4.9 mmol/L (3.5-5.1); Sodium 137 mmol/L (137-145); Total Bilirubin 0.6 mg/dL (0.2-1.3); Total Protein 7.6 g/dL (6.3-8.2)
--- NOTE | 2023-07-17 07:25 | CT ---
EXAMINATION TYPE: CT brain juan carlos laboy con DATE OF EXAM: 07/17/2023 COMPARISON: 07/27/2020 HISTORY: Seizure, AMS CT DLP: 1913.[address] of the brain was performed. The ventricles, basal cisterns and sulci overlying the cerebral convexities demonstrate mild enlargem ent. There is no evidence for intracranial hemorrhage or sulcal effacement. There is decreased attenuatio n about the periventricular white matter and deep white matter of both cerebral hemispheres, compatib le with chronic small vessel ischemia. No mass effects are seen. If symptoms persist consider MRI. Osseous calvarium is intact. IMPRESSION: 1. Age related atrophic and chronic small vessel ischemic change without acute intracranial process seen at this time. CT Cervical Spine: Unenhanced CT of the cervical spine was performed with bone and soft tissue window settings submitted . Coronal and sagittal reconstruction is obtained. There is normal alignment and prevertebral soft tissues. No evidence for acute cervical fracture . Postoperative changes of ACDF at C5-6. Large ventral spur is noted. Scattered degenerative disc disea se and spondylosis. Biapical scarring. IMPRESSION: 1. No evidence for acute fracture or subluxation of the cervical spine.
[2023-07-17 09:12] VITALS: BP 135/94; PULSE 79; TEMP 98.6
== END 2023-07-17 08:25 | disposition home or self-care (01) ==
LOC: EC 04:26
DX: G40.409 Other generalized epilepsy and epileptic syndromes, not intractable, without status epilepticus (principal); J45.909 Unspecified asthma, uncomplicated; I10 Essential (primary) hypertension; F12.90 Cannabis use, unspecified, uncomplicated; Z87.891 Personal history of nicotine dependence
CPT/HCPCS: 36415; 93005; 80053; 83735; 85025; 72125; 70450; 99285; 96365; 96375; 96361; J2060; J1165

== ENCOUNTER 2023-10-03 07:48 | Emergency (ER) | payer MEDICARE, OTHER ==
[2023-10-03 07:59] VITALS: RESP 18
[2023-10-03] MEDS ORDERED: levETIRAcetam IV 500 MG/5 ML VIAL IVP STA (08:08)
--- NOTE | 2023-10-03 08:11 | ED ---
General Adult HPI - General Chief complaint: Seizure Stated complaint: Seizures Time Seen by Provider: 10/03/23 07:55 Source: patient, EMS, RN notes reviewed, old records reviewed Mode of arrival: EMS Limitations: no limitations - History of Present Illness Initial comments: This a 58-year-old male who presents emergency Department complaining of having had 3 seizures since 2 AM this morning. Patient states she's been out of his Keppra for a year except when he was in longterm and they gave him his Keppra that is been a month ago. Patient states he fell and according to EMS it looks like he hit his head he has a headache and a little bit of neck pain. Patient denies numbness weakness. Patient denies any chest pain difficult breathing shortness of breath per patient denies any recent fever chills or cough. Patient denies drug use. - Related Data Home Medications Medication Instructions Recorded Confirmed levETIRAcetam [Keppra] 1,500 mg PO Q12HR 10/03/23 10/03/23 Allergies Allergy/AdvReac Type Severity Reaction Status Date / Time No Known Allergies Allergy Verified 10/03/23 08:37 Review of Systems ROS Statement: Those systems with pertinent positive or pertinent negative responses have been documented in the HPI. ROS Other: All systems not noted in ROS Statement are negative. Past Medical History Past Medical History: Asthma, Hypertension, Seizure Disorder Additional Past Medical History / Comment(s): occ. Hypertension/ no meds, seizure 08/2019 takes Keppra at home History of Any Multi-Drug Resistant Organisms: None Reported Past Surgical History: Orthopedic Surgery Additional Past Surgical History / Comment(s): neck fusion; R ankle Past Anesthesia/Blood Transfusion Reactions: No Reported Reaction Past Psychological History: No Psychological Hx Reported Smoking Status: Former smoker Past Alcohol Use History: Occasional Past Drug Use History: Marijuana - Past Family History Mother Family Medical History: No Reported History General Exam - General Exam Comments Initial Comments: GENERAL: Patient is well-developed and well-nourished. Patient is nontoxic and well- hydrated and is in mild distress. ENT: Neck is soft and supple. No significant lymphadenopathy is noted. Oropharynx is clear. Moist mucous membranes. Neck has full range of motion without eliciting any pain. EYES: The sclera were anicteric and conjunctiva were pink and moist. Extraocular movements were intact and pupils were equal round and reactive to light. Eyelids were unremarkable. PULMONARY: Unlabored respirations. Good breath sounds bilaterally. No audible rales rhonchi or wheezing was noted. CARDIOVASCULAR: There is a regular rate and rhythm without any murmurs gallops or rubs. ABDOMEN: Soft and nontender with normal bowel sounds. SKIN: Skin is clear with no lesions or rashes and otherwise unremarkable. NEUROLOGIC: Patient is alert and oriented x3. Cranial nerves II through XII are grossly intact. Motor and sensory are also intact. Normal speech, volume and content. Symmetrical smile. MUSCULOSKELETAL: Normal extremities with adequate strength and full range of motion. No lower extremity swelling or edema. No calf tenderness. LYMPHATICS: No significant lymphadenopathy is noted PSYCHIATRIC: Normal psychiatric evaluation. Limitations: no limitations Course Vital Signs 10/03/23 10/03/23 10/03/23 07:54 09:52 10:04 Temperature 99.1 F 99 F Pulse Rate 89 87 Respiratory 18 18 Rate Blood Pressure 139/82 142/89 O2 Sat by Pulse 97 100 Oximetry Medical Decision Making - Medical Decision Making EKG is interpreted by myself. EKG shows sinus rhythm at 92 bpm NE interval 241 cardiac is 82 QT interval 343 QTC is 392. Patient's EKG shows early repolarization Was pt. sent in by a medical professional or institution (, PA, GUEST SERVICE SUPERVISOR, urgent care, hospital, or fpc...) When possible be specific @ -No Did you speak to anyone other than the patient for history (EMS, parent, family, police, friend...)? What history was obtained from this source @ -EMS gave most of the history Did you review nursing and triage notes (agree or disagree)? Why? @ -I reviewed and agree with nursing and triage notes Were old charts reviewed (outside hosp., previous admission, EMS record, old EKG, old radiological studies, urgent care reports/EKG's, fpc records)? Report findings @ -I reviewed prior chart from prior lab work on this patient. Differential Diagnosis (chest pain, altered mental status, abdominal pain women, abdominal pain men, vaginal bleeding, weakness, fever, dyspnea, syncope, headache, dizziness, GI bleed, back pain, seizure, CVA, palpatations, mental health, musculoskeletal)? @ -Differential Seizure: Recurrent seizure disorder, febrile seizure, alcohol withdrawal, stimulants, meningitis, encephalitis, intercranial hemorrhage, intracranial tumor, stroke, eclampsia, thyrotoxicosis, hypocalcemia, hyponatremia, hypernatremia, hypomagnesemia, psychogenic, this is not meant to be an all-inclusive list. EKG interpreted by me (3pts min.). @ -As above X-rays interpreted by me (1pt min.). @ -None done CT interpreted by me (1pt min.). @ -CT of the C-spine shows no acute abnormality. CT of the brain shows a 1.6 cm subdural with acute components. Patient also has a 4 mm left for chest U/S interpreted by me (1pt. min.). @ -None done What testing was considered but not performed or refused? (CT, X-rays, U/S, labs)? Why? @ -None What meds were considered but not given or refused? Why? @ -None Did you discuss the management of the patient with other professionals (professionals i.e. , PA, GUEST SERVICE SUPERVISOR, lab, RT, psych nurse, social insurance analyst, pressure steamer tender, teacher, employment officer, casework manager)? Give summary @ -Spoke with the ER document [facility] and he accepted the transfer the patient Was smoking cessation discussed for >3mins.? @ -No Was critical care preformed (if so, how long)? @ -35 minutes Were there social determinants of health that impacted care today? How? (Homelessness, low income, unemployed, alcoholism, drug addiction, transportatio n, low edu. Level, literacy, decrease access to med. care, longterm, rehab)? @ -No Was there de-escalation of care discussed even if they declined (Discuss DNR or withdrawal of care, Hospice)? DNR status @ -No What co-morbidities impacted this encounter? (DM, HTN, Smoking, COPD, CAD, Cancer, CVA, ARF, Chemo, Hep., AIDS, mental health diagnosis, sleep apnea, morbid obesity)? @ -None Was patient admitted / discharged? Hospital course, mention meds given and route, prescriptions, significant lab abnormalities, going to OR and other pertinent info. @ -She had a CT which showed acute subdural and a little bit of midline shift so I spoke with [facility] they accepted the transfer the patient and the patient will be transferred. Patient also received 1500 mg of Keppra for his seizures Undiagnosed new problem with uncertain prognosis? @ -No Drug Therapy requiring intensive monitoring for toxicity (Heparin, Nitro, Insulin, Cardizem)? @ -No Were any procedures done? @ -No Diagnosis/symptom? @ -Subdural hematoma Acute, or Chronic, or Acute on Chronic? @ -Acute Uncomplicated (without systemic symptoms) or Complicated (systemic symptoms)? @ -Complicated Side effects of treatment? @ -No Exacerbation, Progression, or Severe Exacerbation? @ -No Poses a threat to life or bodily function? How? (Chest pain, [place], [place], pneumonia, PE, COPD, DKA, ARF, appy, cholecystitis, CVA, Diverticulitis, Homicidal, Suicidal, threat to staff... and all critical care pts) @ -Yes this could lead to more shift and herniation and Diagnosis/symptom? @ -Seizures multiple Acute, or Chronic, or Acute on Chronic? @ -Acute Uncomplicated (without systemic symptoms) or Complicated (systemic symptoms)? @ -Complicated Side effects of treatment? @ -none Exacerbation, Progression, or Severe Exacerbation] @ -no Poses a threat to life or bodily function? @ -no - Lab Data Result diagrams: 10/03/23 08:40 10/03/23 08:40 Lab Results 10/03/23 10/03/23 10/03/23 Range/Units 08:40 08:40 08:40 WBC 14.2 H (3.8-10.6) k/uL RBC 5.55 (4.30-5.90) m/uL Hgb 16.4 (13.0-17.5) gm/dL Hct 49.3 (39.0-53.0) % MCV 88.7 (80.0-100.0) fL MCH 29.5 (25.0-35.0) pg MCHC 33.2 (31.0-37.0) g/dL RDW 13.4 (11.5-15.5) % Plt Count 274 (150-450) k/uL MPV 9.1 Neutrophils % 77 % Lymphocytes % 15 % Monocytes % 5 % Eosinophils % 2 % Basophils % 0 % Neutrophils # 11.0 H (1.3-7.7) k/uL Lymphocytes # 2.1 (1.0-4.8) k/uL Monocytes # 0.7 (0-1.0) k/uL Eosinophils # 0.2 (0-0.7) k/uL Basophils # 0.1 (0-0.2) k/uL Sodium 138 (137-145) mmol/L Potassium 4.6 (3.5-5.1) mmol/L Chloride 104 (98-107) mmol/L Carbon Dioxide 23 (22-30) mmol/L Anion Gap 11 mmol/L BUN 16 (9-20) mg/dL Creatinine 0.84 (0.66-1.25) mg/dL Est GFR (CKD-EPI)AfAm >90 (>60 ml/min/1.73 sqM) Est GFR (CKD-EPI)NonAf >90 (>60 ml/min/1.73 sqM) Glucose 78 (74-99) mg/dL Calcium 9.8 (8.4-10.2) mg/dL Magnesium 2.4 H (1.6-2.3) mg/dL Total Bilirubin 0.6 (0.2-1.3) mg/dL AST 26 (17-59) U/L ALT 14 (4-49) U/L Alkaline Phosphatase 92 (38-126) U/L Troponin I 0.015 (0.000-0.034) ng/mL Total Protein 8.7 H (6.3-8.2) g/dL Albumin 4.7 (3.5-5.0) g/dL Urine Opiates Screen (NotDetected) Ur Oxycodone Screen (NotDetected) Urine Methadone Screen (NotDetected) Ur Propoxyphene Screen (NotDetected) Ur Barbiturates Screen (NotDetected) U Tricyclic Antidepress (NotDetected) Ur Phencyclidine Scrn (NotDetected) Ur Amphetamines Screen (NotDetected) U Methamphetamines Scrn (NotDetected) U Benzodiazepines Scrn (NotDetected) Urine Cocaine Screen (NotDetected) U Marijuana (THC) Screen (NotDetected) 10/03/23 Range/Units 08:40 WBC (3.8-10.6) k/uL RBC (4.30-5.90) m/uL Hgb (13.0-17.5) gm/dL Hct (39.0-53.0) % MCV (80.0-100.0) fL MCH (25.0-35.0) pg MCHC (31.0-37.0) g/dL RDW (11.5-15.5) % Plt Count (150-450) k/uL MPV Neutrophils % % Lymphocytes % % Monocytes % % Eosinophils % % Basophils % % Neutrophils # (1.3-7.7) k/uL Lymphocytes # (1.0-4.8) k/uL Monocytes # (0-1.0) k/uL Eosinophils # (0-0.7) k/uL Basophils # (0-0.2) k/uL Sodium (137-145) mmol/L Potassium (3.5-5.1) mmol/L Chloride (98-107) mmol/L Carbon Dioxide (22-30) mmol/L Anion Gap mmol/L BUN (9-20) mg/dL Creatinine (0.66-1.25) mg/dL Est GFR (CKD-EPI)AfAm (>60 ml/min/1.73 sqM) Est GFR (CKD-EPI)NonAf (>60 ml/min/1.73 sqM) Glucose (74-99) mg/dL Calcium (8.4-10.2) mg/dL Magnesium (1.6-2.3) mg/dL Total Bilirubin (0.2-1.3) mg/dL AST (17-59) U/L ALT (4-49) U/L Alkaline Phosphatase (38-126) U/L Troponin I (0.000-0.034) ng/mL Total Protein (6.3-8.2) g/dL Albumin (3.5-5.0) g/dL Urine Opiates Screen Not Detected (NotDetected) Ur Oxycodone Screen Not Detected (NotDetected) Urine Methadone Screen Not Detected (NotDetected) Ur Propoxyphene Screen Not Detected (NotDetected) Ur Barbiturates Screen Not Detected (NotDetected) U Tricyclic Antidepress Not Detected (NotDetected) Ur Phencyclidine Scrn Not Detected (NotDetected) Ur Amphetamines Screen Not Detected (NotDetected) U Methamphetamines Scrn Not Detected (NotDetected) U Benzodiazepines Scrn Not Detected (NotDetected) Urine Cocaine Screen Not Detected (NotDetected) U Marijuana (THC) Screen Not Detected (NotDetected) Critical Care Time Critical Care Time: Yes Total Critical Care Time: 35 Disposition Clinical Impression: Seizures, Acute subdural hematoma Disposition: OTHER INSTITUTION NOT DEFINED Referrals: Casper Barcenas MD [Primary Care Provider] - 1-2 days - Out of Hospital Transfer - Req. Specs Out of Hospital Transfer - Requested Specifics: Other Emergency Center ([facility])
--- NOTE | 2023-10-03 09:00 | CT ---
EXAMINATION TYPE: CT brain juan carlos wo con DATE OF EXAM: 10/03/2023 COMPARISON: 07/17/2023 HISTORY: 58-year-old male with trauma and pain after SEIZURE CT DLP: 1442.4 mGycm Automated exposure control for dose reduction was used. Technique: Examination of the head was done in axial plane without intravenous contrast. Coronal and sagittal reconstructions performed. CT of the cervical spine was obtained in axial plane without intravenous injection of contrast mater ial. Coronal and sagittal reformatted images were obtained from the axial views for evaluation of f ractures, spinal alignment and canal. FINDINGS: Head: There is a moderate-sized mixed age subdural hematoma extending along the right lateral convexity. Th ere is combination of low density, isodense, and high density components to the extra-axial collectio n which measures up to 1.6 cm thick. There is mass effect onto the underlying cerebral hemisphere wit h sulcal effacement. There is secondary to 4 mm of leftward midline shift. No herniation is seen. No effacement of basal subarachnoid cisterns. Similar empty sella noted. No hydrocephalus. Peacock-white matter distinction is maintained. Moderate mucosal thickening throughout the ethmoid air cells. Orbits and globes are intact. Mastoid a ir cells are well pneumatized. No calvarial fracture. Cervical spine: No craniocervical junction anomaly, predental space widening, or prevertebral soft tissue swelling. Patient status post C5-C6 ACDF. Some anterior endplate bridging spondylosis is present at C4-C5 as we ll. Partially bridging anterior endplate spondylosis also noted at C7-T1. No acute fracture of the cervical spine. Alignment is maintained. Very minimal mild bilateral neuroforaminal stenoses throughout. Emphysematous change in the visualized upper lungs. Sagittal and coronal reformatted images confirm above findings. COMBINED IMPRESSION: 1. Moderate-sized subdural hematoma along the right lateral convexity measuring 1.6 cm thick. This is a mixed age subdural hematoma that contains chronic, subacute, and acute blood products. However, al l new compared to 07/17/2023. 2. Mass effect onto the underlying cerebral cortex resulting in 4 mm of leftward midline shift. No he rniation or hydrocephalus. 3. Cervical spine shows no acute fracture or malalignment. Status post C5-C6 ACDF. 4. Moderate chronic ethmoid sinus disease. COPD in the visualized upper lungs. Critical findings called to Dr. Cano in the ER at 8:55 AM.
[2023-10-03 09:45] LABS: ALT 14 U/L (4-49); AST 26 U/L (17-59); African American GFR (CKD) >90 (>60 ml/min/1.73 sqM); Albumin 4.7 g/dL (3.5-5.0); Alkaline Phosphatase 92 U/L (38-126); Anion Gap 11 mmol/L; Blood Urea Nitrogen 16 mg/dL (9-20); Calcium 9.8 mg/dL (8.4-10.2); Carbon Dioxide 23 mmol/L (22-30); Chloride 104 mmol/L (98-107); Glucose 78 mg/dL (74-99); Magnesium 2.4 mg/dL (1.6-2.3); Non-African American GFR(CKD) >90 (>60 ml/min/1.73 sqM); Potassium 4.6 mmol/L (3.5-5.1); Sodium 138 mmol/L (137-145); Total Bilirubin 0.6 mg/dL (0.2-1.3); Total Protein 8.7 g/dL (6.3-8.2)
[2023-10-03 09:47] LABS: Amphetamine Screen,Urine Not Detected (NotDetected); Barbiturate Screen,Urine Not Detected (NotDetected); Benzodiazepines Screen,Urine Not Detected (NotDetected); Cocaine Screen,Urine Not Detected (NotDetected); Methadone Screen, Urine Not Detected (NotDetected); Opiate Screen,Urine Not Detected (NotDetected); Oxycodone Screen, Urine Not Detected (NotDetected); Phencyclidine Screen,Urine Not Detected (NotDetected); Tricyclic Antidepressant,Urine Not Detected (NotDetected); Urn Cannabinoid Scrn Not Detected (NotDetected)
[2023-10-03 10:02] VITALS: BP 142/89; PULSE 87
[2023-10-03 10:27] VITALS: TEMP 99
[2023-10-03 10:37] LABS: Basophils # (A) 0.1 k/uL (0-0.2); Basophils % (A) 0 %; Eosinophils # (A) 0.2 k/uL (0-0.7); Eosinophils % (A) 2 %; HCT 49.3 % (39.0-53.0); HGB 16.4 gm/dL (13.0-17.5); Lymphocytes # (A) 2.1 k/uL (1.0-4.8); Lymphocytes % (A) 15 %; MCH 29.5 pg (25.0-35.0); MCHC 33.2 g/dL (31.0-37.0); MCV 88.7 fL (80.0-100.0); Mean Platelet Volume 9.1; Monocytes # (A) 0.7 k/uL (0-1.0); Monocytes % (A) 5 %; Neutrophils % (A) 77 %; Platelet Count 274 k/uL (150-450); RBC 5.55 m/uL (4.30-5.90); RDW 13.4 % (11.5-15.5); WBC 14.2 k/uL (3.8-10.6)
== END 2023-10-03 10:05 | disposition other institution (70) ==
LOC: EC 07:48
DX: S06.5XAA Traumatic subdural hemorrhage with loss of consciousness status unknown, initial encounter (principal); G40.909 Epilepsy, unspecified, not intractable, without status epilepticus; I10 Essential (primary) hypertension; J45.909 Unspecified asthma, uncomplicated; F12.90 Cannabis use, unspecified, uncomplicated; Z79.899 Other long term (current) drug therapy; Z87.891 Personal history of nicotine dependence; W19.XXXA Unspecified fall, initial encounter
CPT/HCPCS: 99291 ×2; 96374 ×2; 36415; 93005; 80053; 83735; 84484; 85025; 80306; 72125; 70450; J1953

== ENCOUNTER 2024-11-05 02:02 | Emergency (ER) | payer MEDICARE, OTHER ==
[2024-11-05 02:09] VITALS: RESP 18
--- NOTE | 2024-11-05 02:17 | ED ---
General Adult HPI - General Chief complaint: Seizure Stated complaint: Seizure Source: patient, EMS Mode of arrival: EMS Limitations: no limitations - History of Present Illness Initial comments: Romi is a 59-year-old gentleman with history of epilepsy who is on Keppra 1000 mg twice daily patient reports that he missed at least 1 dose yesterday and subsequently had a seizure. Seizure was witnessed by the patient's roommate, per EMS they were advised that the patient had 1 to 2 minutes of tonic-clonic activity, loss of continence and upon EMS arrival was postictal. Patient states that his last seizure was in January, he has no complaints at the time of arrival states that he would not have come to the hospital but his roommate had called EMS. - Related Data Home Medications Medication Instructions Recorded Confirmed levETIRAcetam [Keppra] 1,000 mg PO Q12HR 10/03/23 11/04/24 Eslicarbazepine Acetate [Aptiom] 400 mg PO DAILY 11/04/24 11/04/24 Allergies Allergy/AdvReac Type Severity Reaction Status Date / Time No Known Allergies Allergy Verified 11/05/24 02:08 Review of Systems ROS Statement: Those systems with pertinent positive or pertinent negative responses have been documented in the HPI. ROS Other: All systems not noted in ROS Statement are negative. Past Medical History Past Medical History: Hypertension, Seizure Disorder Additional Past Medical History / Comment(s): occ. Hypertension/ no meds, seizure 08/2019 takes Keppra at home History of Any Multi-Drug Resistant Organisms: None Reported Past Surgical History: Orthopedic Surgery Additional Past Surgical History / Comment(s): neck fusion; R ankle Past Anesthesia/Blood Transfusion Reactions: No Reported Reaction Past Psychological History: No Psychological Hx Reported Smoking Status: Former smoker Past Alcohol Use History: Occasional Past Drug Use History: Marijuana - Past Family History Mother Family Medical History: No Reported History General Exam - General Exam Comments Initial Comments: Physical Exam GENERAL: Patient is well-developed and well-nourished. Patient is nontoxic and well-hydrated and is in no distress. HENT: Normocephalic, Atraumatic. EYES: PERRL, EOMI PULMONARY: Unlabored respirations. CARDIOVASCULAR: RRR Warm and well perfused extremities ABDOMEN: Non-distended SKIN: No rashes or bruising : Deferred NEUROLOGIC: Alert and oriented Normal speech Normal gait MUSCULOSKELETAL: Moving all extremities with no apparent injury PSYCHIATRIC: No SI/HI Limitations: no limitations Course Vital Signs 11/05/24 11/05/24 11/05/24 02:04 03:08 04:08 Temperature 97.7 F Pulse Rate 85 75 63 Respiratory 18 18 18 Rate Blood Pressure 139/88 128/76 139/82 O2 Sat by Pulse 98 98 97 Oximetry EKG Findings - EKG Comments: EKG Findings:: EKG interpreted by me, EKG obtained due to seizure EKG obtained at 0208 rate is 84 rhythm is sinus normal intervals [place] 146 QRS [address] QTc [address] elevations or depressions no evidence of ischemia infarction or pathologic arrhythmia. Medical Decision Making - Medical Decision Making Was pt. sent in by a medical professional or institution (, PA, SOLDER MAKING SUPERVISOR, urgent care, hospital, or senior living...) When possible be specific @ -No Did you speak to anyone other than the patient for history (EMS, parent, family, police, friend...)? What history was obtained from this source @ -EMS Did you review nursing and triage notes (agree or disagree)? Why? @ -I reviewed and agree with nursing and triage notes Were old charts reviewed (outside hosp., previous admission, EMS record, old EKG, old radiological studies, urgent care reports/EKG's, senior living records)? Report findings @ -No old charts were reviewed Differential Diagnosis (chest pain, altered mental status, abdominal pain women, abdominal pain men, vaginal bleeding, weakness, fever, dyspnea, syncope, headache, dizziness, GI bleed, back pain, seizure, CVA, palpatations, mental health)? @ -Differential Seizure: Recurrent seizure disorder, febrile seizure, alcohol withdrawal, stimulants, meningitis, encephalitis, intercranial hemorrhage, intracranial tumor, stroke, eclampsia, thyrotoxicosis, hypocalcemia, hyponatremia, hypernatremia, hypomagnesemia, psychogenic, this is not meant to be an all-inclusive list. EKG interpreted by me (3pts min.). @ -As above X-rays interpreted by me (1pt min.). @ -None done CT interpreted by me (1pt min.). @ -None done U/S interpreted by me (1pt. min.). @ -None done What testing was considered but not performed or refused? (CT, X-rays, U/S, labs)? Why? @ -None What meds were considered but not given or refused? Why? @ -None Did you discuss the management of the patient with other professionals (professionals i.e. , PA, SOLDER MAKING SUPERVISOR, lab, RT, psych nurse, social economist, systems technologist, teacher, guest relation officer, case folder)? Give summary @ -No Was smoking cessation discussed for >3mins.? @ -No Was critical care preformed (if so, how long)? @ -No Were there social determinants of health that impacted care today? How? (Homelessness, low income, unemployed, alcoholism, drug addiction, transportation, low edu. Level, literacy, decrease access to med. care, [place] [facility], rehab)? @ -No Was there de-escalation of care discussed even if they declined (Discuss DNR or withdrawal of care, Hospice)? DNR status @ -No What co-morbidities impacted this encounter? (DM, HTN, Smoking, COPD, CAD, Cancer, CVA, ARF, Chemo, Hep., AIDS, mental health diagnosis, sleep apnea, morbid obesity)? @ -None Was patient admitted / discharged? Hospital course, mention meds given and route, prescriptions, significant lab abnormalities, going to OR and other pertinent info. @ -Discharged Patient was seen and evaluated history is obtained from EMS and patient. Patient has a known seizure disorder he may have missed 1-2 doses of medications over the past couple of days. Patient had a tonic-clonic seizure with loss of bladder continence. Patient is back to his baseline he is awake alert and oriented. Labs were obtained some mild hyperkalemia 5.2 as well as mild leukocytosis likely reactive. Patient received a gram of Keppra while in the ER. Patient resting comfortably stable for discharge home continued outpatient management. Undiagnosed new problem with uncertain prognosis? @ -No Drug Therapy requiring intensive monitoring for toxicity (Heparin, Nitro, Insulin, Cardizem)? @ -No Were any procedures done? @ -No Diagnosis/symptom? @ -Seizure Acute, or Chronic, or Acute on Chronic? @ -Acute on chronic Uncomplicated (without systemic symptoms) or Complicated (systemic symptoms)? @ -Default Side effects of treatment? @ -No Exacerbation, Progression, or Severe Exacerbation? @ -No Poses a threat to life or bodily function? How? (Chest pain, [place], [place], pneumonia, PE, COPD, DKA, ARF, appy, cholecystitis, CVA, Diverticulitis, Homicidal, Suicidal, threat to staff... and all critical care pts) @ -No - Lab Data Result diagrams: 11/05/24 02:15 11/05/24 02:15 Lab Results 11/05/24 11/05/24 Range/Units 02:15 02:15 WBC 11.5 H (3.8-10.6) k/uL RBC 5.10 (4.30-5.90) m/uL Hgb 15.6 (13.0-17.5) gm/dL Hct 47.5 (39.0-53.0) % MCV 93.1 (80.0-100.0) fL MCH 30.6 (25.0-35.0) pg MCHC 32.8 (31.0-37.0) g/dL RDW 13.9 (11.5-15.5) % Plt Count 298 (150-450) k/uL MPV 8.3 Neutrophils % 47 % Lymphocytes % 43 % Monocytes % 6 % Eosinophils % 1 % Basophils % 1 % Neutrophils # 5.4 (1.3-7.7) k/uL Lymphocytes # 5.0 H (1.0-4.8) k/uL Monocytes # 0.7 (0-1.0) k/uL Eosinophils # 0.2 (0-0.7) k/uL Basophils # 0.1 (0-0.2) k/uL Sodium 138 (137-145) mmol/L Potassium 5.2 H (3.5-5.1) mmol/L Chloride 109 H (98-107) mmol/L Carbon Dioxide 16 L (22-30) mmol/L Anion Gap 13 mmol/L BUN 9 (9-20) mg/dL Creatinine 0.98 (0.66-1.25) mg/dL Est GFR (CKD-EPI)AfAm >90 (>60 ml/min/1.73 sqM) Est GFR (CKD-EPI)NonAf 84 (>60 ml/min/1.73 sqM) Glucose 126 H (74-99) mg/dL Calcium 9.7 (8.4-10.2) mg/dL Total Bilirubin 1.3 (0.2-1.3) mg/dL AST 42 (17-59) U/L ALT 18 (4-49) U/L Alkaline Phosphatase 75 (38-126) U/L Total Protein 8.9 H (6.3-8.2) g/dL Albumin 5.0 (3.5-5.0) g/dL Disposition Clinical Impression: Epileptic seizure, generalized Disposition: HOME SELF-CARE Condition: Stable Instructions (If sedation given, give patient instructions): Seizure/Epilepsy Discharge Instructions & Follow-Up Is patient prescribed a controlled substance at d/c from ED?: No Referrals: Casper Barcenas MD [Primary Care Provider] - 1-2 days
[2024-11-05 03:04] LABS: Basophils # (A) 0.1 k/uL (0-0.2); Basophils % (A) 1 %; Eosinophils # (A) 0.2 k/uL (0-0.7); Eosinophils % (A) 1 %; HCT 47.5 % (39.0-53.0); HGB 15.6 gm/dL (13.0-17.5); Lymphocytes % (A) 43 %; MCH 30.6 pg (25.0-35.0); MCHC 32.8 g/dL (31.0-37.0); MCV 93.1 fL (80.0-100.0); Mean Platelet Volume 8.3; Monocytes # (A) 0.7 k/uL (0-1.0); Monocytes % (A) 6 %; Neutrophils # (A) 5.4 k/uL (1.3-7.7); Neutrophils % (A) 47 %; Platelet Count 298 k/uL (150-450); RDW 13.9 % (11.5-15.5); WBC 11.5 k/uL (3.8-10.6)
[2024-11-05] MEDS: levETIRAcetam IV 2,000 MG in SODIUM CHLORIDE 0.9% 250 ML IVPB ONE (03:06)
[2024-11-05 03:10] LABS: ALT 18 U/L (4-49); African American GFR (CKD) >90 (>60 ml/min/1.73 sqM); Anion Gap 13 mmol/L; Blood Urea Nitrogen 9 mg/dL (9-20); Calcium 9.7 mg/dL (8.4-10.2); Carbon Dioxide 16 mmol/L (22-30); Chloride 109 mmol/L (98-107); Glucose 126 mg/dL (74-99); Non-African American GFR(CKD) 84 (>60 ml/min/1.73 sqM); Sodium 138 mmol/L (137-145); Total Bilirubin 1.3 mg/dL (0.2-1.3)
[2024-11-05 03:12] LABS: AST 42 U/L (17-59); Alkaline Phosphatase 75 U/L (38-126); Potassium 5.2 mmol/L (3.5-5.1); Total Protein 8.9 g/dL (6.3-8.2)
[2024-11-05 05:47] VITALS: BP 139/81; PULSE 81; TEMP 97.8
== END 2024-11-05 05:45 | disposition home or self-care (01) ==
LOC: EC 02:02
DX: G40.409 Other generalized epilepsy and epileptic syndromes, not intractable, without status epilepticus (principal); Z87.891 Personal history of nicotine dependence
CPT/HCPCS: 99285; 36415; 80053; 85025; 96365; J1953

== ENCOUNTER 2024-11-05 12:27 | Day surgery (SDC) | payer MEDICARE, OTHER ==
[2024-11-04 12:27] VITALS: BMI 25.8
[~2024-11-05 12:27] MED LIST changes: -HYDROmorphone 1 MG/ML 1 ML SYRINGE IVP PRN; -LACTATED RINGERS 1,000 ML IV SCH; +LIDOCAINE 1% (10MG/ML) FOR IV START INTRADERMA PRN; -LIDOCAINE 1% 20 ML VIAL (10MG/ML) FOR IV START INTRADERMA PRN; -ONDANSETRON 4 MG/2 ML VIAL IVP ONE; -ceFAZolin 2 GM in SODIUM CHLORIDE 0.9% 100 ML IVPB ONE
[2024-11-05 14:56] VITALS: TEMP 97.7
[2024-11-05] MEDS: IV FLUID CONTINUATION 1,000 ML IV ONE (14:56)
[2024-11-05] MEDS: LACTATED RINGERS 1,000 ML IV SCH (14:58)
[2024-11-05] MEDS ORDERED: PROPOFOL 10 MG/ML 20 ML VIAL IV ONE (15:15)
--- NOTE | 2024-11-05 15:28 | P.PCN ---
Date of Procedure: 11/05/24 Procedure(s) Performed: BRIEF HISTORY: Patient is a 59-year-old [place] male scheduled for an elective colonoscopy as a part of screening for colon cancer. PROCEDURE PERFORMED: Colonoscopy. PREOPERATIVE DIAGNOSIS: Screening for colon cancer. IV sedation per Anesthesia. PROCEDURE: After informed consent was obtained, the patient, was brought into the endoscopy unit. IV sedation was administered by Anesthesia under continuous monitoring. Digital rectal examination was normal. Initially the Olympus CF-160 flexible video colonoscope was then inserted in the rectum, gradually advanced into the cecum without any difficulty. Careful examination was performed as the scope was gradually being withdrawn. Ileocecal valve and the appendiceal orifice were visualized and appeared normal. Prep was excellent. Mucosa of the cecum, ascending colon, transverse colon, descending colon, sigmoid colon, and rectum appeared normal. Retroflexion was performed in the rectum and no lesions were seen. The patient tolerated the procedure well. 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 RECOMMENDATIONS: Findings of this examination were discussed with the patient as well as his family. He was advised to have repeat screening colonoscopy in 10 years.
[2024-11-05 15:36] VITALS: RESP 16
[2024-11-05 15:49] VITALS: BP 132/91; PULSE 82
== END 2024-11-05 16:27 ==
LOC: ORWHC2ENDO 12:27
PROVIDERS: ATTEND Internal Medicine Gastroenterology
DX: Z12.11 Encounter for screening for malignant neoplasm of colon (principal); I10 Essential (primary) hypertension; J45.909 Unspecified asthma, uncomplicated; G40.909 Epilepsy, unspecified, not intractable, without status epilepticus; F17.200 Nicotine dependence, unspecified, uncomplicated; F12.90 Cannabis use, unspecified, uncomplicated; Z79.899 Other long term (current) drug therapy
CPT/HCPCS: J2704; G0121